=== PATIENT | female | born 1955 | race African-American/Black ===

== ENCOUNTER 2017-09-08 17:55 | Inpatient (IN) | payer MEDICAID, OTHER ==
[2017-09-08 18:43] LABS: #Eosinphils 0.2 thou/uL (0.0-0.7); #Lymphocytes 2.6 thou/uL (1.20-3.40); #Monocytes 0.8 thou/uL (0.11-0.59); #Neutrophils 4.2 thou/uL (1.40-6.50); %Basophils 0.6 % (0.0-1.0); %Eosinophils 2.4 % (0.0-10.0); %Lymphocytes 32.8 % (21.0-51.0); %Monocytes 9.7 % (0.0-10.0); %Neutrophils 54.5 % (42.0-75.0); Hemoglobin 9.6 g/dL (12.0-16.0); Mean Corpuscular HGB CONC 33.1 g/dL (32.0-36.0); Mean Corpuscular Hemoglobin 30.8 pg (27.0-31.0); Mean Corpuscular Volume 93.2 fl (81.0-99.0); Mean Platelet Volume 6.6 fL (7.4-10.4); Platelet Count 262 thou/uL (130-400); RBC Distribution Width 13.4 % (11.5-14.5); Red Blood Cell (RBC) Count 3.11 mill/uL (4.20-5.40); White Blood Cell (WBC) Count 7.8 thou/uL (4.8-10.8)
[2017-09-08 19:05] LABS: ALT (SGPT) 40 U/L (8-55); AST (SGOT) 60 U/L (5-34); Albumin 3.2 g/dL (3.4-4.8); Alkaline Phosphatase 164 U/L (40-150); Anion Gap 18 mmol/L (10-20); BUN (Urea Nitrogen) 45 mg/dL (9.8-20.1); Bilirubin, Total 0.7 mg/dL (0.2-1.2); CK (CPK) 67 U/L (29-168); Calc. Creatinine Clearance 0 mL/min (70-130); Calcium 9.3 mg/dL (7.8-10.44); Carbon Dioxide 31 mmol/L (23-31); Chloride 92 mmol/L (98-107); Estimated GFR-MDRD 9; Globulin 4.3 g/dL (2.4-3.5); Glucose 130 mg/dL (80-115); Potassium 4.2 mmol/L (3.5-5.1); Protein, Total 7.5 g/dL (6.0-8.3); Sodium 137 mmol/L (136-145)
--- NOTE | 2017-09-08 19:21 | RAD ---
CHEST TWO VIEW 09/08/17 HISTORY: Weakness. COMPARISON: Chest radiograph 03/27/17. FINDINGS: Heart size is upper limits of normal. There is some faint opacities in the lingula and left lower lob e, improved from the comparison examination. No pneumothorax. No significant effusion. IMPRESSION: Mild cardiomegaly and chronic changes. No acute intrathoracic abnormality. POS: [facility]
--- NOTE | 2017-09-08 19:23 | RAD ---
LEFT KNEE THREE VIEW 09/08/17 HISTORY: Trauma. COMPARISON: Radiograph from 2015. FINDINGS: No displaced fracture or malalignment. Severe medial compartment degenerative disease. Extensive vasc ular calcifications. No significant joint effusion. Large tricompartmental osteophytes. IMPRESSION: 1. No displaced fracture or malalignment. 2. Severe medial compartment osteoarthrosis. POS: [facility]
--- NOTE | 2017-09-08 19:24 | RAD ---
RIGHT KNEE THREE VIEW 09/08/17 HISTORY: Trauma. COMPARISON: None. FINDINGS: No displaced fracture or malalignment. Moderate medial compartment narrowing. Chondrocalcinosis is present. IMPRESSION: Extensive vascular calcifications. IMPRESSION: 1. No displaced fracture or malalignment. 2. Moderate tricompartmental osteoarthritic disease, worse in the medial compartment. POS: [facility]
--- NOTE | 2017-09-08 20:15 | CT ---
CT BRAIN WITHOUT CONTRAST 09/08/17 HISTORY: Right sided weakness. COMPARISON: CT brain 05/07/14. FINDINGS: There are punctate calcifications in the carlos, similar. Old left lacunar infarcts. Mild microvascular ischemic changes. Mild ex vacuo dilatation of the body left lateral ventricle. The paranasal sinuses and mastoids are clear. IMPRESSION: No acute intracranial abnormality. POS: [facility]
--- NOTE | 2017-09-08 20:19 | CT ---
CT CERVICAL SPINE WITHOUT CONTRAST 09/08/17 HISTORY: Fall. COMPARISON: None. FINDINGS: The occipital condyles are intact. There are erosions of the odontoid process without fracture. Vertebral bodies are without fracture. Posterior elements are without fracture. Dense vascular calcifications of the carotid bifurcations bilaterally, although mildly worse on the r ight. The visualized ribs are unremarkable. The lung apices are clear. Paraspinal soft tissues are unremarkable. IMPRESSION: 1. No acute fracture or malalignment of the cervical spine. 2. Posterior longitudinal ligament calcifications at C5-6 causing mild narrowing of the spinal c anal to approximately 6 mm. 3. Posterior disc extrusion at C3-4 narrowing the spinal canal to approximately 3-4 mm. MRI may be helpful on nonemergent basis to evaluate for underlying myelomalacia. POS: [facility]
[2017-09-08 21:01] LABS: CKMB 0.6 ng/mL (0-6.6); Troponin I 0.034 ng/mL (< 0.028)
[2017-09-08] MEDS ORDERED: Morphine 4 MG/ML VIAL ONE (21:21)
[2017-09-08 22:07] LABS: Troponin I 0.036 ng/mL (< 0.028)
[2017-09-08] MEDS ORDERED: Labetalol HCl 100 MG/20 ML VIAL SLOW IVP PRN (23:24)
[2017-09-08] MEDS ORDERED: hydrALAZINE 20 MG/ML VIAL SLOW IVP PRN (23:24)
[2017-09-08] MEDS ORDERED: Guaifenesin DM 100-10/5 ML UDCUP PO PRN (23:24)
[2017-09-09 00:39] VITALS: BMI 33.3
[2017-09-09 01:13] LABS: Troponin I 0.051 ng/mL (< 0.028)
--- NOTE | 2017-09-09 01:27 | HP ---
REASON FOR ADMISSION: Right upper extremity tingling and numbness. HISTORY OF PRESENT ILLNESS: The patient was sent from [facility] for complaints of left upper extremity numbness and tingling, but patient complains of right upper extremity numbness here. The patient states she is a right-handed person. She also mentions that she has had old stroke which has affected her right side and made her sensation go bad on the right side. This happened 2 years back. She has been wheelchair bound at the shelter. She normally sits in her wheelchair and rides around, but this morning she was in bed and she was having paraesthesias in the right upper extremity. Patient also keeps repeating her answers at least 2-3 times. She cannot move both lower extremities as it hurts her. No complaints of chest pain, palpitations, PND or orthopnea. She had her dialysis yesterday. PAST MEDICAL AND SURGICAL HISTORY: History of end-stage renal disease on hemodialysis on Sunday, Wednesdays, and Fridays; hypertension, dyslipidemia, prior history of cerebrovascular accident 2 years ago, bilateral knee surgery, cholecystectomy, hysterectomy, spinal surgery, left upper extremity dialysis access procedures, glaucoma. CURRENT MEDICATIONS: The patient is on alprazolam 0.5 mg p.o. twice daily, Norvasc 10 mg p.o. daily, aspirin 81 mg p.o. daily, Coreg 6.25 mg twice daily, latanoprost and timolol eyedrops, lisinopril 7.5 mg daily, PhosLo 667 mg after meals, gabapentin 100 mg 4 times daily, omeprazole 20 mg daily. ALLERGIES: LYRICA, PENICILLIN, PHENERGAN and SULFA. PERSONAL HISTORY: Does not abuse alcohol or drugs. No history of smoking. FAMILY HISTORY: Father with COPD and cancer. Mother has heart disease. REVIEW OF SYSTEMS: The following complete review of systems was negative, unless otherwise mentioned in the HPI or below: Constitutional: Weight loss or gain, ability to conduct usual activities. Skin: Rash, itching. Eyes: Double vision, pain. ENT/Mouth: Nose bleeding, neck stiffness, pain, tenderness. Cardiovascular: Palpitations, dyspnea on exertion, orthopnea. Respiratory: Shortness of breath, wheezing, cough, hemoptysis, fever or night sweats. Gastrointestinal: Poor appetite, abdominal pain, heartburn, nausea, vomiting, constipation, or diarrhea. Genitourinary: Urgency, frequency, dysuria, nocturia. Musculoskeletal: Pain, swelling. Neurologic/Psychiatric: Anxiety, depression. Allergy/Immunologic: Skin rash, bleeding tendency. PHYSICAL EXAMINATION: GENERAL: The patient is a 62-year-old female who is currently not in any acute distress. VITAL SIGNS: Blood pressure 178/66, pulse 74 per minute, respiratory rate 18 per minute, temperature 99 degrees Fahrenheit, saturating 98% on room air. NECK: Supple, no elevated JVD. HEENT: Extraocular muscles intact. Pupils reacting to light. Oral cavity mucous membranes are moist. No exudates or congestion. CARDIOVASCULAR: S1, S2 heard. Regular rhythm. RESPIRATORY: Air entry 1+ bilaterally. No rales or rhonchi. ABDOMEN: Soft, bowel sounds heard. No tenderness, rigidity or guarding. EXTREMITIES: There is 1+ peripheral edema, no calf tenderness. VASCULAR SYSTEM: Peripheral pulses 1+ bilateral. No ischemic ulcerations or gangrene. CENTRAL NERVOUS SYSTEM: The patient has difficulty moving both her lower extremities which causes pain in her back. She has been that way for many years per patient. Left upper extremity strength is 5/5, right upper extremity is 3/5, reflexes are 1+ bilateral. Babinski is equivocal. Gait cannot be tested. PSYCHIATRIC: No obvious hallucinations or delusions. LABORATORY AND X-RAY FINDINGS: EKG done shows normal sinus rhythm at 71 beats per minute. White count of 7, H&H 9 and 29, platelet count 262 with 54% neutrophils, MCV is 93. Serum bicarbonate is 31, BUN 45, creatinine 5.8, glucose 130, AST 60, ALT 40, alkaline phosphatase 164, albumin is 3.2, troponin I is indeterminate at 0.03, CK-MB 0.6. Influenza A and B antigens are negative. She has had multiple imaging studies done including CT spine, CAT scan which shows no acute fracture or malalignment of C-spine. There is a posterior longitudinal ligament calcifications at C5-6 causing mild narrowing of the spinal canal to approximately 6 mm. There is posterior disk protrusion at C3-C4 narrowing the spinal canal to approximately 3-4 mm. Left knee x-ray done shows no displaced fracture or malalignment, severe medial compartment osteoarthrosis is seen. CT brain done shows no acute intracranial abnormality. There is punctate calcification in the carlos, old left lacunar infarcts are seen. Mild ex vacuo dilatation of the body of left lateral ventricle. Right knee x-ray shows no displaced fracture or malalignment. There is moderate tricompartmental osteoarthritic disease, worse in the medial compartment. Chest x-ray done shows no acute infiltrate. There is mild cardiomegaly. CLINICAL IMPRESSION AND PLAN: The patient will be under observation on the stroke unit for possible TIA. She has had cerebrovascular accident on the same side. She has had prior cerebrovascular accident of right side 2 years ago per patient. She has had paraesthesias from then on, it just seems to be worse in the right upper extremity now. Patient chronically does not move both lower extremities. We will obtain MRI brain for better delineation of the brain structures in view of her prior CVA as well. We will continue her home medication including Norvasc, aspirin, Lipitor, Coreg, Neurontin, latanoprost, atenolol, and Xanax as before. Neurology consultation with Dr. Roxann Almonte who is director of recruitment and admissions for Neurology will be obtained as well. ELANA
[2017-09-09] MEDS: Acetaminophen 325 MG TAB PO PRN (02:01)
[2017-09-09 05:08] LABS: #Basophils 0.1 thou/uL (0.0-0.2); #Eosinphils 0.1 thou/uL (0.0-0.7); #Lymphocytes 2.4 thou/uL (1.20-3.40); #Monocytes 0.6 thou/uL (0.11-0.59); #Neutrophils 3.5 thou/uL (1.40-6.50); %Basophils 0.8 % (0.0-1.0); %Eosinophils 2.1 % (0.0-10.0); %Lymphocytes 35.8 % (21.0-51.0); %Monocytes 9.6 % (0.0-10.0); %Neutrophils 51.8 % (42.0-75.0); Hemoglobin 9.1 g/dL (12.0-16.0); Mean Corpuscular HGB CONC 33.4 g/dL (32.0-36.0); Mean Platelet Volume 6.8 fL (7.4-10.4); Platelet Count 245 thou/uL (130-400); RBC Distribution Width 13.1 % (11.5-14.5); Red Blood Cell (RBC) Count 2.94 mill/uL (4.20-5.40); White Blood Cell (WBC) Count 6.7 thou/uL (4.8-10.8)
[2017-09-09 05:30] LABS: Anion Gap 17 mmol/L (10-20); BUN (Urea Nitrogen) 50 mg/dL (9.8-20.1); Calc. Creatinine Clearance 12 mL/min (70-130); Calcium 8.9 mg/dL (7.8-10.44); Carbon Dioxide 32 mmol/L (23-31); Cardiac Risk 3.4 (Less than 4.5); Chloride 91 mmol/L (98-107); Cholesterol 134 mg/dl (< 200 Desired); Estimated GFR-MDRD 8; Glucose 85 mg/dL (80-115); HDL Cholesterol 40 mg/dL (>60 Neg Risk); LDL Cholesterol, Calculated 44 mg/dL; Potassium 4.6 mmol/L (3.5-5.1); Sodium 135 mmol/L (136-145); Triglycerides 252 mg/dL (Less than 150)
[2017-09-09] MEDS ORDERED: Aspirin 81 mg Enteric Coated Tablet PO SCH ×2 (09:00→21:00)
[2017-09-09] MEDS ORDERED: Carvedilol 6.25 MG TAB PO SCH (09:00)
[2017-09-09] MEDS: Docusate 100 MG CAP PO SCH ×2 (09:54→19:50)
[2017-09-09] MEDS: ALPRAZolam 0.5 MG TAB PO SCH ×2 (09:56→19:50)
[2017-09-09] MEDS: Amlodipine 10 MG TAB PO SCH (09:56)
[2017-09-09] MEDS: Famotidine 20 MG TAB PO SCH (09:56)
[2017-09-09] MEDS: Heparin 5,000 UNITS/ML VIAL SC SCH ×3 (09:57→19:51)
[2017-09-09] MEDS ORDERED: Acetaminophen/Codeine 30-300mg Tablet PO PRN (10:09)
[2017-09-09] MEDS: Timolol 0.5% Ophth Soln 5 ml Bottle EA EYE SCH (11:59)
[2017-09-09] MEDS: Acetaminophen/Codeine 30-300mg Tablet PO PRN ×2 (12:00→18:05)
--- NOTE | 2017-09-09 14:14 | PDOC.PN ---
- Subjective Encounter Start Date: 09/09/17 Encounter Start Time: 14:13 Subjective: feels better. on and off right hand numbness -: hasn't walked in months as she will refuse PT often - Objective Resuscitation Status: Resuscitation Status FULL:Full Resuscitation MAR Reviewed: Yes Vital Signs & Weight: Vital Signs (12 hours) Temp Pulse Pulse Pulse Resp BP BP 09/09/17 11:59 61 179/78 H 09/09/17 10:52 98.4 F 61 16 09/09/17 09:56 61 162/69 H 09/09/17 08:57 65 62 152/70 H 09/09/17 07:20 98.6 F 61 20 09/09/17 07:02 98.6 F 61 20 09/09/17 04:30 98.4 F 60 16 166/72 H BP BP Pulse Ox 09/09/17 11:59 09/09/17 10:52 179/78 H 99 09/09/17 09:56 09/09/17 08:57 173/73 H 09/09/17 07:20 09/09/17 07:02 162/69 H 94 L 09/09/17 04:30 98 Weight Weight 182 lb 6 oz I&O: 09/08/17 09/09/17 09/10/17 06:59 06:59 06:59 Intake Total 240 300 Balance 240 300 Result Diagrams: 09/09/17 04:09 09/09/17 04:09 Additional Labs: Accuchecks 09/09/17 09/09/17 11:00 07:45 POC Glucose 160 H 106 Phys Exam - Physical Examination Constitutional: NAD HEENT: PERRLA, moist MMs, sclera anicteric, oral pharynx no lesions Neck: no nodes, no JVD, supple, full ROM Respiratory: no wheezing, no rales, no rhonchi, clear to auscultation bilateral Cardiovascular: RRR, no significant murmur Gastrointestinal: soft, non-tender, no distention, positive bowel sounds Musculoskeletal: no edema, pulses present Neurological: non-focal, normal sensation, moves all 4 limbs Psychiatric: normal affect, A&O x 3 Skin: no rash Dx/Plan (1) TIA (transient ischemic attack) Status: Acute (2) ESRD (end stage renal disease) on dialysis Code(s): N18.6 - END STAGE RENAL DISEASE; Z99.2 - DEPENDENCE ON RENAL DIALYSIS Status: Chronic (3) History of CVA (cerebrovascular accident) Code(s): Z86.73 - PRSNL HX OF TIA (TIA), AND CEREB INFRC W/O RESID DEFICITS Status: Chronic (4) Hypertension Code(s): I10 - ESSENTIAL (PRIMARY) HYPERTENSION Status: Chronic (5) Obesity (BMI 30.0-34.9) Code(s): E66.9 - OBESITY, UNSPECIFIED Status: Chronic (6) Anemia of renal disease Code(s): D63.1 - ANEMIA IN CHRONIC KIDNEY DISEASE Status: Chronic (7) Diabetes type 2, controlled Code(s): E11.9 - TYPE 2 DIABETES MELLITUS WITHOUT COMPLICATIONS Status: Chronic (8) Diabetic nephropathy associated with type 2 diabetes mellitus Code(s): E11.21 - TYPE 2 DIABETES MELLITUS WITH DIABETIC NEPHROPATHY Status: Chronic - Plan PT/OT, respiratory therapy, incentive spirometry, out of bed/ambulate, DVT proph w/SCDs MRI & neuro eval pending.doubtful new stroke -: will do inpt rehab.pt does not walk because she does'nt participate much -: cont home meds as below. -: consult OT,PT * . Review of Systems - Review of Systems Constitutional: negative: fever, chills, sweats, weakness, malaise, other Respiratory: negative: Cough, Dry, Shortness of Breath, Hemoptysis, SOB with Excertion, Pleuritic Pain, Sputum, Wheezing Cardiovascular: negative: chest pain, palpitations, orthopnea, paroxysmal nocturnal dyspnea, edema, light headedness, other Gastrointestinal: negative: Nausea, Vomiting, Abdominal Pain, Diarrhea, Constipation, Melena, Hematochezia, Other Genitourinary: negative: Dysuria, Frequency, Incontinence, Hematuria, Retention , Other Musculoskeletal: negative: Neck Pain, Shoulder Pain, Arm Pain, Back Pain, Hand Pain, Leg Pain, Foot Pain, Other Neurological: Weakness, Numbness - Medications/Allergies Allergies/Adverse Reactions: Allergies Allergy/AdvReac Type Severity Reaction Status Date / Time Penicillins Allergy Intermediate THROAT Verified 03/28/17 02:45 SWELLING pregabalin [From Lyrica] Allergy Intermediate DILLIRIUM Verified 03/28/17 02:45 Sulfa (Sulfonamide Allergy Intermediate Nausea Verified 03/28/17 02:45 Antibiotics) promethazine [From Phenergan] Allergy Verified 03/28/17 02:45 Medications: Current Medications Acetaminophen (Tylenol) 650 mg PO Q4H PRN PRN Reason: Headache/Fever or Pain Last Admin: 09/09/17 02:01 Dose: 650 mg Acetaminophen/Codeine Phosphate (Tylenol #3) 1 tab PO Q6H PRN PRN Reason: Pain 4-6 Acetaminophen/Codeine Phosphate (Tylenol #3) 2 tab PO Q6H PRN PRN Reason: Pain 7-10 Last Admin: 09/09/17 12:00 Dose: 2 tab Alprazolam (Xanax) 0.5 mg PO BID [facility] Last Admin: 09/09/17 09:56 Dose: 0.5 mg Amlodipine Besylate (Norvasc) 10 mg PO DAILY [facility] Last Admin: 09/09/17 09:56 Dose: 10 mg Aspirin (Ecotrin) 81 mg PO 2100 [facility] Atorvastatin Calcium (Lipitor) 20 mg PO HS [facility] Carvedilol (Coreg) 6.25 mg PO DAILY [facility] Last Admin: 09/09/17 09:56 Dose: 6.25 mg Docusate Sodium (Colace) 100 mg PO BID [facility] Last Admin: 09/09/17 09:54 Dose: Not Given Famotidine (Pepcid) 20 mg PO DAILY [facility] Last Admin: 09/09/17 09:56 Dose: 20 mg Gabapentin (Neurontin) 100 mg PO HS [facility] Guaifenesin/Dextromethorphan (Robitussin Dm) 15 ml PO Q4H PRN PRN Reason: Cough Heparin Sodium (Porcine) (Heparin) 5,000 units SC TID [facility] Last Admin: 09/09/17 09:57 Dose: 5,000 units Hydralazine HCl (Apresoline) 10 mg SLOW IVP Q4H PRN PRN Reason: BP > 220/110 Labetalol HCl (Normodyne) 20 mg SLOW IVP Q1H PRN PRN Reason: BP > 220/110 Latanoprost (Xalatan 0.005% Ophth Soln) 1 drop EA EYE HS [facility] Timolol Maleate (Timoptic 0.5% Ophth Soln) 1 drop EA EYE DAILY [facility] Last Admin: 09/09/17 11:59 Dose: 1 drp
--- NOTE | 2017-09-09 16:40 | MRI ---
BRAIN MRI NONCONTRAST: Clinical history: Right sided weakness. TIA. FINDINGS: Parenchymal atrophy with mild compensatory dilatation of the ventricular system. No acute territory i nfarction or midline shift. Imaged skull base flow voids are grossly patent. Remote lacunar infarctio n of the left basal ganglia is present. No intracranial hemorrhagic susceptibility. There is minimal chronic microvascular ischemic disease of the cerebral white matter. IMPRESSION: No acute intracranial abnormalities. POS: [facility]
[2017-09-09] MEDS: Atorvastatin Calcium 20 MG TAB PO SCH (19:50)
[2017-09-09] MEDS: Latanoprost 0.005% Ophth Soln 2.5 ml Bottle EA EYE SCH (19:51)
[2017-09-09] MEDS ORDERED: Gabapentin 100 MG CAP PO SCH (21:00)
--- NOTE | 2017-09-09 22:14 | CON ---
DATE OF CONSULTATION: 09/09/2017 REFERRING PROVIDER: Jerry Sumner M.D. REASON FOR CONSULTATION: Right-sided weakness. HISTORY OF PRESENT ILLNESS: Ms. Howard is a pleasant 62-year-old -[place] female who has be en concerned for evaluation of right-sided weakness. History is obtained from daughter who was prese nt at bedside. Daughter reports that the patient has a history of stroke in 2013, which had resulted in right arm and right leg weakness. She had been able to walk with support of walker and dragging her right leg since that time. She reports that she was doing well up until 11/2016, when she was ad mitted to the [facility] with complaint of fluid overload. She was found to have kidney david lure and had started on dialysis. Since that time, she has not been able to walk even with the suppo rt of a walker. She states that she has been having increasing episodes of pain in her right lower e xtremity as well as right upper extremity and increasing weakness in that side, more so in the leg th an the arm. She states that over the past 2 to 3 weeks, her pain has been increasing, which prompted her fdc nurse practitioner to increase the dose of gabapentin without much effect. Her butch n was getting more intolerable, which prompted her to present to the [facility]. The patient reports that her pain is primarily in the right upper and right lower extremity. She also co mplains of lower back pain. She has had lumbar spine surgery done in the past; however, her lower ba ck pain has been increasing in severity over the past one year. On occasion, this pain does go down to the right lower extremity. She states that her pain is so intense that she is not able to put any weight in her legs and not able to walk even with support. She had been able to transfer from bed t o wheelchair without assistance; however, about a month ago, she fell while trying to get up out of t he wheelchair and since then she has been reluctant to try to stand up and transfer from bed to wheel chair. PAST MEDICAL HISTORY: Significant for hypertension, diabetes, end-stage renal disease on dialysis, h istory of stroke, and lumbar spondylosis. PAST SURGICAL HISTORY: Significant for bilateral knee surgery, cholecystectomy, hysterectomy, lumbar spine surgery, left upper extremity dialysis catheter placement. CURRENT MEDICATIONS: Please review MAR. ALLERGIES: Include LYRICA, PENICILLIN, PHENERGAN, and SULFA. SOCIAL HISTORY: She denies smoking, alcohol use, or illicit drug use. FAMILY HISTORY: Significant for father with COPD and cancer. Mother with heart disease. REVIEW OF SYSTEMS: As mentioned in the HPI, otherwise negative. PHYSICAL EXAMINATION: VITAL SIGNS: Blood pressure 168/73, pulse of 57, temperature of 98.9, respirations of 16, O2 sats of 93% on room air. GENERAL: Well-developed, well-nourished, -[place] female, in no apparent distress. RESPIRATORY: Clear to auscultation bilaterally. CARDIOVASCULAR: Regular rate and rhythm. NEUROLOGIC: Mental status: The patient is awake, alert, oriented x3. Speech and language: Fluent speech. Cranial nerves: Pupils are 3 mm and reactive. Visual carpenter are full to finger count. Ext ernal muscles are intact. No nystagmus is noted. Face is symmetric. Tongue and uvula are midline. Motor exam showed slightly increased tone in the right upper and right lower extremity. She has 4/5 strength in the right upper extremity. Strength in the left upper extremity is 5/5, strength in the right and left lower extremity is 5/5. Sensory: Diminished sensation in both upper and lower extre mities in distal to proximal gradient. Deep tendon reflexes: 1+ reflex in both upper extremities an d absent in both lower extremities. Babinski: Plantar responses flexion bilaterally. Coordination intact to [id number] tapping bilaterally. LABORATORY DATA: Reviewed, which included CBC, CMP, troponin, CK-MB, CPK and lipid profile, which is significant for hemoglobin 9.1, hematocrit of 27.4. Sodium 135, BUN of 50, creatinine 6.35, glucose of 160. Troponin of 0.051, total cholesterol of 134, LDL of 44, HDL of 40, and triglycerides of 252 , otherwise unremarkable. IMAGING STUDIES: MRI brain without contrast was reviewed, official report is pending. It shows no a cute intracranial abnormality. There is no sign of an acute ischemic infarct. IMPRESSION: 1. Right upper extremity and lower extremity paresthesia. 2. Hypertension. 3. Diabetes. 4. End-stage renal disease on dialysis. Ms. Howard is a pleasant 62-year-old -[place] female with multiple medical problems, present ed with the worsening right-sided pain and weakness. I have reviewed her MRI brain, which showed no acute intracranial abnormality. In my opinion, her symptoms are likely multifactorial. 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 She also may have underlying cervical and lumbar spinal degenerative disk disease that may be contributing to her symptoms. 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 I have revi ewed her MRI of the lumbar spine done on previous visit in 03/2017, which showed multilevel degenerat darien disk disease without any cauda equina compression. CT cervical spine without contrast was also r eviewed, which showed calcification at C5-C6 causing mild narrowing of the spinal canal. At this kirstin e, I would recommend adjusting her Neurontin to 300 mg b.i.d. If she continues to have the symptoms, she may be added on amitriptyline or Cymbalta. I would recommend having her seen by neurosurgeon as an outpatient. She will benefit from having inpatient rehabilitation. No further neurological work up needed from my standpoint. Thank you for the consultation.
[2017-09-10] MEDS: Acetaminophen 325 MG TAB PO PRN (02:51)
[2017-09-10] MEDS: Docusate 100 MG CAP PO SCH ×2 (09:30→22:31)
[2017-09-10] MEDS: Amlodipine 10 MG TAB PO SCH (09:30)
[2017-09-10] MEDS: Famotidine 20 MG TAB PO SCH (09:30)
[2017-09-10] MEDS: Timolol 0.5% Ophth Soln 5 ml Bottle EA EYE SCH (09:30)
[2017-09-10] MEDS: ALPRAZolam 0.5 MG TAB PO SCH ×2 (09:30→22:30)
[2017-09-10] MEDS: Gabapentin 100 MG CAP PO SCH ×3 (09:34→22:30)
[2017-09-10] MEDS: Lisinopril 5 MG TAB PO SCH (09:34)
[2017-09-10] MEDS: Heparin 5,000 UNITS/ML VIAL SC SCH ×3 (09:35→22:29)
--- NOTE | 2017-09-10 10:03 | RAD ---
CHEST ONE VIEW: History: Fever. Comparison: 03-27-17 FINDINGS: Lungs are clear. No pneumothorax or effusion. Cardiac silhouette and mediastinal contour is within no rmal limits. Mild degenerative changes left glenohumeral joint. IMPRESSION: Mild cardiomegaly. The pulmonary edema previously seen edema has improved. POS: [facility]
[2017-09-10] MEDS: Oseltamivir 75 MG CAP PO SCH (12:04)
[2017-09-10] MEDS: Calcium Acetate 667 MG CAP PO SCH ×2 (12:04→17:32)
[2017-09-10 12:51] LABS: HBSAg Index 0.56 S/CO (0-0.99); Hep B Surf Ag Non-Reactive S/CO (NonReactive)
--- NOTE | 2017-09-10 14:17 | PDOC.PN ---
- Subjective Encounter Start Date: 09/10/17 Encounter Start Time: 14:16 Subjective: c/o leg cramps during HD ,O/W no new complains -: continues to feel weak and tired -: low grade fever this am - Objective Resuscitation Status: Resuscitation Status FULL:Full Resuscitation MAR Reviewed: Yes Vital Signs & Weight: Vital Signs (12 hours) Temp Pulse Pulse Pulse Resp BP BP 09/10/17 10:30 97.7 F 40 L 20 09/10/17 09:34 48 L 09/10/17 08:28 37 L 36 L 148/67 H 09/10/17 08:00 98.8 F 48 L 18 09/10/17 07:05 97.8 F 48 L 16 09/10/17 02:48 100.0 F H 44 L 20 155/69 H BP BP Pulse Ox Pulse Ox 09/10/17 10:30 134/61 92 L 09/10/17 09:34 09/10/17 08:28 120/55 L 92 L 09/10/17 08:00 09/10/17 07:05 131/58 L 94 L 09/10/17 02:48 91 L Weight Weight 182 lb 6 oz I&O: 09/09/17 09/10/17 09/11/17 06:59 06:59 06:59 Intake Total 240 1020 Output Total 0 Balance 240 1020 Result Diagrams: 09/09/17 04:09 09/09/17 04:09 Additional Labs: Accuchecks 09/10/17 09/10/17 09/09/17 10:42 04:34 20:16 POC Glucose 106 135 H 175 H 09/09/17 17:12 POC Glucose 162 H Radiology Reviewed by me: Yes (MRI-no new CVA) EKG Reviewed by me: Yes (NSR) Phys Exam - Physical Examination Constitutional: NAD HEENT: PERRLA, moist MMs, sclera anicteric, oral pharynx no lesions Neck: no nodes, no JVD, supple, full ROM Respiratory: no wheezing, no rales, no rhonchi, clear to auscultation bilateral Cardiovascular: RRR, no significant murmur, no rub, gallop Gastrointestinal: soft, non-tender, no distention, positive bowel sounds Musculoskeletal: no edema, pulses present Neurological: non-focal, normal sensation, moves all 4 limbs Psychiatric: normal affect, A&O x 3 Skin: no rash Dx/Plan (1) Fever Code(s): R50.9 - FEVER, UNSPECIFIED Status: Acute (2) ESRD (end stage renal disease) on dialysis Code(s): N18.6 - END STAGE RENAL DISEASE; Z99.2 - DEPENDENCE ON RENAL DIALYSIS Status: Chronic (3) History of CVA (cerebrovascular accident) Code(s): Z86.73 - PRSNL HX OF TIA (TIA), AND CEREB INFRC W/O RESID DEFICITS Status: Chronic (4) Hypertension Code(s): I10 - ESSENTIAL (PRIMARY) HYPERTENSION Status: Chronic (5) Obesity (BMI 30.0-34.9) Code(s): E66.9 - OBESITY, UNSPECIFIED Status: Chronic (6) Anemia of renal disease Code(s): D63.1 - ANEMIA IN CHRONIC KIDNEY DISEASE Status: Chronic (7) Diabetes type 2, controlled Code(s): E11.9 - TYPE 2 DIABETES MELLITUS WITHOUT COMPLICATIONS Status: Chronic (8) Diabetic nephropathy associated with type 2 diabetes mellitus Code(s): E11.21 - TYPE 2 DIABETES MELLITUS WITH DIABETIC NEPHROPATHY Status: Chronic (9) TIA (transient ischemic attack) Status: Ruled-out (10) Physical deconditioning Code(s): R53.81 - OTHER MALAISE Status: Acute - Plan PT/OT, out of bed/ambulate, DVT proph w/SCDs check blood Cx.restart Tamiflu prophylaxis -pt [facility] -: increase Gabapentin for neuropathy. -: rehab eval pending for Inpt rehab-pt severe deconditioned -: CX checked-no infiltrates -: HD per nephrology.am labs Not stable for DC yet.Need placement and fever work up Review of Systems - Review of Systems Constitutional: fever, weakness, malaise. negative: chills, sweats, other - Medications/Allergies Allergies/Adverse Reactions: Allergies Allergy/AdvReac Type Severity Reaction Status Date / Time Penicillins Allergy Intermediate THROAT Verified 03/28/17 02:45 SWELLING pregabalin [From Lyrica] Allergy Intermediate DILLIRIUM Verified 03/28/17 02:45 Sulfa (Sulfonamide Allergy Intermediate Nausea Verified 03/28/17 02:45 Antibiotics) promethazine [From Phenergan] Allergy Verified 03/28/17 02:45 Medications: Current Medications Acetaminophen (Tylenol) 650 mg PO Q4H PRN PRN Reason: Headache/Fever or Pain Last Admin: 09/10/17 02:51 Dose: 650 mg Acetaminophen/Codeine Phosphate (Tylenol #3) 1 tab PO Q6H PRN PRN Reason: Pain 4-6 Acetaminophen/Codeine Phosphate (Tylenol #3) 2 tab PO Q6H PRN PRN Reason: Pain 7-10 Last Admin: 09/09/17 18:05 Dose: 2 tab Alprazolam (Xanax) 0.5 mg PO BID [facility] Last Admin: 09/10/17 09:30 Dose: 0.5 mg Amlodipine Besylate (Norvasc) 10 mg PO DAILY [facility] Last Admin: 09/10/17 09:30 Dose: 10 mg Aspirin (Ecotrin) 81 mg PO QPM [facility] Atorvastatin Calcium (Lipitor) 20 mg PO HS [facility] Last Admin: 09/09/17 19:50 Dose: 20 mg Calcium Acetate (Phoslo) 667 mg PO TID-[facility] Last Admin: 09/10/17 12:04 Dose: Not Given Docusate Sodium (Colace) 100 mg PO BID [facility] Last Admin: 09/10/17 09:30 Dose: 100 mg Famotidine (Pepcid) 20 mg PO DAILY [facility] Last Admin: 09/10/17 09:30 Dose: 20 mg Gabapentin (Neurontin) 100 mg PO TID [facility] Last Admin: 09/10/17 09:34 Dose: 100 mg Guaifenesin/Dextromethorphan (Robitussin Dm) 15 ml PO Q4H PRN PRN Reason: Cough Heparin Sodium (Porcine) (Heparin) 5,000 units SC TID [facility] Last Admin: 09/10/17 09:35 Dose: Not Given Hydralazine HCl (Apresoline) 10 mg SLOW IVP Q4H PRN PRN Reason: BP > 220/110 Labetalol HCl (Normodyne) 20 mg SLOW IVP Q1H PRN PRN Reason: BP > 220/110 Latanoprost (Xalatan 0.005% Ophth Soln) 1 drop EA EYE [facility] Last Admin: 09/09/17 19:51 Dose: 1 drop Lisinopril (Zestril) 7.5 mg PO DAILY [facility] Last Admin: 09/10/17 09:34 Dose: 7.5 mg Oseltamivir Phosphate (Tamiflu) 75 mg PO DAILY [facility] Last Admin: 09/10/17 12:04 Dose: Not Given Pantoprazole Sodium (Protonix) 40 mg PO DAILY [facility] Timolol Maleate (Timoptic 0.5% Oph Soln) 1 drop EA EYE DAILY [facility] Last Admin: 09/10/17 09:30 Dose: 1 drp
[2017-09-10] MEDS: Latanoprost 0.005% Ophth Soln 2.5 ml Bottle EA EYE SCH (22:29)
[2017-09-10] MEDS: Atorvastatin Calcium 20 MG TAB PO SCH (22:30)
[2017-09-10] MEDS: Aspirin 81 mg Enteric Coated Tablet PO SCH (22:30)
[2017-09-10] MEDS: Acetaminophen/Codeine 30-300mg Tablet PO PRN (22:30)
[2017-09-11 05:47] LABS: Anion Gap 17 mmol/L (10-20); BUN (Urea Nitrogen) 34 mg/dL (9.8-20.1); Calc. Creatinine Clearance 14 mL/min (70-130); Calcium 8.7 mg/dL (7.8-10.44); Carbon Dioxide 26 mmol/L (23-31); Chloride 96 mmol/L (98-107); Estimated GFR-MDRD 10; Glucose 86 mg/dL (80-115); Potassium 5.3 mmol/L (3.5-5.1); Sodium 134 mmol/L (136-145)
[2017-09-11 06:26] LABS: #Eosinphils 0.3 thou/uL (0.0-0.7); #Lymphocytes 2.5 thou/uL (1.20-3.40); #Monocytes 0.6 thou/uL (0.11-0.59); #Neutrophils 2.6 thou/uL (1.40-6.50); %Basophils 0.6 % (0.0-1.0); %Eosinophils 4.8 % (0.0-10.0); %Neutrophils 43.6 % (42.0-75.0); Hemoglobin 10.7 g/dL (12.0-16.0); Mean Corpuscular HGB CONC 34.3 g/dL (32.0-36.0); Mean Corpuscular Hemoglobin 31.5 pg (27.0-31.0); Mean Corpuscular Volume 91.8 fl (81.0-99.0); Mean Platelet Volume 7.2 fL (7.4-10.4); Platelet Count 248 thou/uL (130-400); RBC Distribution Width 13.3 % (11.5-14.5); Red Blood Cell (RBC) Count 3.41 mill/uL (4.20-5.40)
[2017-09-11 06:27] LABS: Band 2 % (5-11); Eosinophils 2 % (0-10); Lymphocytes 35 % (21-51); MDiff Complete? YES; Monocytes 13 % (0-10); Neutrophil 48 % (42-75)
[2017-09-11] MEDS: Calcium Acetate 667 MG CAP PO SCH ×3 (09:30→17:31)
[2017-09-11] MEDS: Heparin 5,000 UNITS/ML VIAL SC SCH ×3 (09:31→20:33)
[2017-09-11] MEDS: Docusate 100 MG CAP PO SCH ×2 (09:32→20:35)
[2017-09-11] MEDS: Amlodipine 10 MG TAB PO SCH (09:34)
[2017-09-11] MEDS: ALPRAZolam 0.5 MG TAB PO SCH ×2 (09:34→20:34)
[2017-09-11] MEDS: Famotidine 20 MG TAB PO SCH (09:34)
[2017-09-11] MEDS: Oseltamivir 75 MG CAP PO SCH (09:35)
[2017-09-11] MEDS: Gabapentin 100 MG CAP PO SCH ×3 (09:35→20:34)
[2017-09-11] MEDS: Timolol 0.5% Ophth Soln 5 ml Bottle EA EYE SCH (09:35)
[2017-09-11] MEDS: Acetaminophen/Codeine 30-300mg Tablet PO PRN (09:36)
[2017-09-11] MEDS: Lisinopril 5 MG TAB PO SCH (09:41)
--- NOTE | 2017-09-11 18:10 | CON ---
DATE OF CONSULTATION: 09/10/2017 REASON FOR CONSULTATION: Bradycardia. HISTORY OF PRESENT ILLNESS: Ms. Howard is a pleasant 62-year-old woman who recently presented with stroke-like symptoms. Neurology was consulted and did not feel this was consistent with stroke. Sena spears had intermittent episodes of bradycardia. She has been on beta vangie therapy as well as ateno lol. She also says she has end-stage renal disease. She has been asymptomatic, but no syncope, pres yncope or other associated symptoms. PAST MEDICAL HISTORY: Diabetes mellitus, end-stage renal disease, previous stroke, hypertension. PAST SURGICAL HISTORY: Knee surgery, cholecystectomy, hysterectomy, and lumbar spinal surgery. ALLERGIES: LYRICA, PENICILLIN, PHENERGAN, and SULFA. SOCIAL HISTORY: No current tobacco or alcohol use. FAMILY HISTORY: Negative for CAD. REVIEW OF SYSTEMS: Ten point review of systems is reviewed and as above negative. PHYSICAL EXAMINATION: GENERAL: Patient is a pleasant male/female who is in no acute distress. The patient appears his/her stated age. VITAL SIGNS: Blood pressure 150/65, pulse 68, temperature 98.9. NEUROLOGIC: The patient is alert and oriented times 3 with no focal neurologic deficits. HEENT: Sclerae without icterus. Mouth has moist mucous membranes with normal pallor. NECK: No JVD. Carotid upstroke brisk. No bruits bilaterally. LUNGS: Clear to auscultation with unlabored respirations. BACK: No scoliosis or kyphosis. CARDIAC: Regular rate and rhythm with normal S1 and S2. No S3 or S4 noted. No significant rubs, mu rmurs, thrills, or gallops noted throughout the precordium. PMI is not displaced. There is no behzad ternal heave. ABDOMEN: Soft, nontender, nondistended. No peritoneal signs present. No hepatosplenomegaly. No abnormal striae. EXTREMITIES: 2+ femoral and 2+ dorsalis pedis pulses. No cyanosis, clubbing, or edema. SKIN: No gross abnormalities. PERTINENT LABORATORY DATA: Hemoglobin 10.7, creatinine 5. IMPRESSION: Bradycardia. RECOMMENDATIONS: Ms. Thomas symptoms may be related to medical therapy. This may also be related to electrolyte imbalance. She does have fairly abnormal tracing. Would recommend EP consultation fo r further assistance. We will stop beta vangie therapy.
[2017-09-11] MEDS: Latanoprost 0.005% Ophth Soln 2.5 ml Bottle EA EYE SCH (20:34)
[2017-09-11] MEDS: Aspirin 81 mg Enteric Coated Tablet PO SCH (20:34)
[2017-09-11] MEDS: Atorvastatin Calcium 20 MG TAB PO SCH (20:34)
--- NOTE | 2017-09-11 21:36 | PDOC.PN ---
- Subjective Encounter Start Date: 09/11/17 Encounter Start Time: 21:20 Subjective: f/u for severe bradycardia likely iatrogenic from Coreg. HR improved off -: Coreg and not deemed a pacemaker candidate per EP service. Overall feels -: better. - Objective Resuscitation Status: Resuscitation Status FULL:Full Resuscitation MAR Reviewed: Yes Vital Signs & Weight: Vital Signs (12 hours) Temp Pulse Resp BP BP Pulse Ox 09/11/17 15:00 98.3 F 56 L 16 152/68 H 97 09/11/17 12:38 98.4 F 60 20 148/69 H 99 09/11/17 09:41 57 L 147/65 H Weight Weight 182 lb 6 oz I&O: 09/10/17 09/11/17 09/12/17 06:59 06:59 06:59 Intake Total 1020 720 600 Output Total 0 1800 Balance 1020 -1080 600 Result Diagrams: 09/11/17 04:52 09/11/17 04:52 Additional Labs: Accuchecks 09/11/17 09/11/17 09/11/17 16:48 11:15 10:47 POC Glucose 111 H 102 107 Microbiology 09/08/17 22:40 Nasal swab Influenza Types A,B Direct EIA - Final 09/10/17 11:30 Venous blood - Right Arm Blood Culture - Preliminary Specimen has been received and culture in progress. No Growth to date. 09/10/17 09:06 Venous blood - Right Hand Blood Culture - Preliminary Specimen has been received and culture in progress. No Growth to date. Laboratory Tests 09/08/17 09/08/17 09/09/17 18:34 18:34 04:09 Hgb 9.6 L Potassium 4.2 4.6 Hep Bs Antigen 09/09/17 09/10/17 04:09 11:30 Hgb 9.1 L Potassium Hep Bs Antigen Non-Reactive Radiology Reviewed by me: Yes (MRI brain - negative) EKG Reviewed by me: Yes (Tele - Sinus in the 60's) Phys Exam - Physical Examination Constitutional: NAD HEENT: PERRLA, oral pharynx no lesions Neck: no JVD, supple Respiratory: no wheezing, clear to auscultation bilateral Cardiovascular: RRR Gastrointestinal: soft, non-tender, no distention, positive bowel sounds Musculoskeletal: no edema, pulses present Neurological: moves all 4 limbs Skin: normal turgor, cap refill <2 seconds Dx/Plan (1) Sinus bradycardia Code(s): R00.1 - BRADYCARDIA, UNSPECIFIED Status: Acute Comment: Suspect iatrogenic with Coreg, improved and resolving with d/c Coreg, continue to monitor for recurrence, EP service states not a candidate for PM placement (2) Physical deconditioning Code(s): R53.81 - OTHER MALAISE Status: Chronic Comment: PT/OT for care home mgmt (3) Anemia of renal disease Code(s): D63.1 - ANEMIA IN CHRONIC KIDNEY DISEASE Status: Chronic Comment: Stable, no evidence of acute blood loss (4) Diabetes type 2, controlled Code(s): E11.9 - TYPE 2 DIABETES MELLITUS WITHOUT COMPLICATIONS Status: Chronic Comment: Stable, continue Levemir and Humalog ISS (5) ESRD (end stage renal disease) on dialysis Code(s): N18.6 - END STAGE RENAL DISEASE; Z99.2 - DEPENDENCE ON RENAL DIALYSIS Status: Chronic Comment: HD per Renal service (6) History of CVA (cerebrovascular accident) Code(s): Z86.73 - PRSNL HX OF TIA (TIA), AND CEREB INFRC W/O RESID DEFICITS Status: Chronic Comment: Associated with R hemiparesis and dysarthria, MRI brain neg for acute process (7) Hypertension Code(s): I10 - ESSENTIAL (PRIMARY) HYPERTENSION Status: Chronic Comment: Increase Lisinopril 10mg daily, d/c Coreg, continue Norvasc 10mg daily - Plan PT/OT, outreach and education social worker, DVT proph w/SCDs Stable currently -: Continue ASA 81mg daily -: Continue Lipitor 20mg daily -: D/C Coreg -: Increase Lisinopril 10mg daily * Appreciate Cardiology and EP assistance * D/C in am 09/12/17
[2017-09-11] MEDS ORDERED: Lisinopril 10 MG TAB PO SCH (21:43)
--- NOTE | 2017-09-12 05:57 | CON ---
DATE OF CONSULTATION: 09/11/2017 REFERRING PHYSICIAN: Dr. Juan Francisco Nicolas. REASON FOR CONSULTATION: Bradycardia. HISTORY OF PRESENT ILLNESS: This is an elderly -[place] patient who is a resident at [facility] who originally presented to emergency room with complaints of left upper extremity numbness and tingling, but currently has complained of right upper extremity numbness. She has had a CVA in the past with residual right-sided weakness and paresthesias which occurred 2 years ago. She is at this point wheelchair bound and has been since November. She has had reportedly significant spinal stenosis and has moderately severe pain when she gets out of bed. She has no history of arrhythmias and has not experienced any palpitations or rapid heart beatings. She has never passed out. She denies any near passing out episodes. She does report that she has dizziness that occurs daily and is unpredictable. She is an end-stage renal patient who dialyzes Sunday, Sunday, Sunday. Other than the dizziness and the arm numbness, the patient has not exhibited any focal symptoms. CT of the head was negative for acute intracranial abnormality that was performed on 09/08/2017. PAST MEDICAL HISTORY: 1. End-stage renal disease requiring dialysis. 2. Severe peripheral vascular disease. 3. Type 2 diabetes. 4. Hypertension 5. Hyperlipidemia. 6. Diastolic dysfunction. 7. Preserved ejection fraction of 55 to 60% on echocardiogram on 06/14/2016 which also showed mild MR and mild TR with grade I diastolic dysfunction and mild left ventricular hypertrophy. 8. Spinal stenosis. 9. CVA 2 years ago with residual right-sided weakness. 10. Glaucoma. 11. Coronary artery disease, status post stent placement. FAMILY HISTORY: Positive for early onset of coronary artery disease. SOCIAL HISTORY: Positive for tobacco use, negative for alcohol or illicit drug use. ALLERGIES: Include PENICILLINS, PREGABALIN, SULFA medications and PROMETHAZINE. CURRENT MEDICATIONS: List includes Tylenol as needed, T3 as needed, Xanax 0.5 mg p.o. b.i.d., amlodipine 10 mg p.o. daily, aspirin 81 mg daily, Lipitor 20 mg p.o. at bedtime, calcium acetate 667 mg p.o. t.i.d. with meals, Colace 100 mg p.o. b.i.d., Pepcid 20 mg p.o. daily, Neurontin 100 mg p.o. t.i.d., Robitussin as needed, heparin 5000 units subcu t.i.d., hydralazine 10 mg slow IV push as needed for hypertension, labetalol as needed for hypertension, latanoprost one drop per eye every evening, Zestril 7.5 mg p.o. daily, Tamiflu 75 mg daily, Protonix 40 mg daily, Timolol maleate 1 drop each eye daily. REVIEW OF SYSTEMS: Constitutional: Patient does report increased weakness over the past 2 to 3 months with falls when trying to transfer from wheelchair to chair. Denies any fevers, chills. Positive for weight fluctuations and malaise. Neurologic: Positive for paresthesias of the upper extremities. Negative for unilateral weakness, speech changes, vision changes, or facial droop. Positive for falls. Cardiovascular: Negative for palpitations and heart raising, chest pain, or pressure. Negative for increased swelling of extremity. Positive for bilateral lower extremity swelling that is constant. GI: Denies nausea, vomiting, diarrhea or blood in her stool. Musculoskeletal: Positive for recent falls with transfers, very limited mobility and weakness that has been progressed over the past 2-3 weeks. PHYSICAL EXAMINATION: VITAL SIGNS: Temperature 98.3 degrees Fahrenheit, pulse is 56, respirations are 16, oxygen saturation is 97% and blood pressure is 152/68. GENERAL: This is an overweight -[place] female in no apparent distress. She is lethargic and a poor historian. HEENT: Pupils are equal, round, and reactive to light and accommodating, sclerae anicteric. NECK: Supple without jugular venous distention. Her trachea is midline. Mucous membranes are moist. PULMONARY: There are crackles noted in bilateral lower lobes upon auscultation. Respirations are even and nonlabored. There is good bilateral excursion without accessory muscle use. CARDIOVASCULAR: Heart rate is regularly regular. EXTREMITIES: Bilateral lower extremities have 2+ pitting edema. GI: Abdomen is large, soft and nontender. There is no splenomegaly that is palpable. Hepatojugular reflux is negative. NEUROLOGIC: The patient is awake, alert, and oriented x3. Her speech is clear and again her affect is somewhat lethargic. The patient has significant weakness in all extremities and sensory deficits in all extremities. MUSCULOSKELETAL: The patient is bed bound and wheelchair dependent for mobility. LABORATORY DATA: Hematology performed on 09/11/2017, WBCs are 6.0, hemoglobin 10.7, hematocrit 31.3, platelet count is 248. Chemistry performed on 09/11/2017 , sodium 134, potassium 5.3, chloride 96, carbon dioxide 26, BUN is 34, creatinine is 5.22. EKGs on pina were reviewed and upon initial presentation to the emergency room, the patient was found to be severely bradycardic and a junctional escape rhythm with rates in the middle of 30s. Later, strips showed the patient has returned to normal sinus rhythm after being dialyzed on 2017 around 11 in the morning. Since that time, the patient has been in sinus bradycardia or sinus rhythm ranging from 55% to 65% beats per minute occasionally with the first-degree AV block. IMPRESSION: 1. Severe bradycardia, likely attributed to his beta vangie use. 2. transient Junctional escape rhythm, currently in normal sinus rhythm. 3. End-stage renal disease. 4. Right upper extremity paresthesias and progressive weakness. RECOMMENDATIONS: Ms. Howard is a pleasant 62-year-old -[place] female with multiple chronic medical problems. She initially presented in a junctional escape rhythm with rates in the low 30s, which corrected when the patient was dialyzed on 09/10/2017. She had previously been taking Coreg and her last dose was in the evening of 09/09/2017. Since that time, the patient has had no recurrence of her bradycardia or junctional rhythm and has been able to maintain in a sinus rhythm or sinus bradycardia with the rates in the 55 to 66 range. The patient does have vague symptoms of dizziness and weakness; however, these do not correlate with her arrhythmias. Her symptoms have persisted since the arrhythmia has resolved. It is likely that the arrhythmia and bradycardia is secondary to beta vangie therapy, Timolol eyedrops may also be contributing factor. At this point, we feel it is appropriate to monitor the patient off of beta vangie therapy. Should she have recurrence of her arrhythmias or becomes symptomatic with syncope or near syncopal episodes that correlate with arrhythmia, a pacemaker could be considered. Should she have increased symptoms or recurrence, could consider 7-day monitor as well. Thank you for allowing us to participate in the care of this patient. Dictated by ANGELIQUE aHwk, for Dion Tan M.D. I was present and examined the pt and agree with the above. Dion Tan MD [facility]
[2017-09-12] MEDS: Acetaminophen/Codeine 30-300mg Tablet PO PRN (12:39)
[2017-09-12] MEDS: Calcium Acetate 667 MG CAP PO SCH (12:40)
[2017-09-12] MEDS: Oseltamivir 75 MG CAP PO SCH (12:40)
[2017-09-12] MEDS: Famotidine 20 MG TAB PO SCH (12:41)
[2017-09-12] MEDS: Docusate 100 MG CAP PO SCH (12:41)
[2017-09-12] MEDS: Amlodipine 10 MG TAB PO SCH (12:41)
[2017-09-12] MEDS: Gabapentin 100 MG CAP PO SCH ×2 (12:42→12:49)
[2017-09-12] MEDS: Heparin 5,000 UNITS/ML VIAL SC SCH ×2 (12:43→12:49)
[2017-09-12] MEDS: ALPRAZolam 0.5 MG TAB PO SCH (12:44)
[2017-09-12 12:47] VITALS: BP 158/67; TEMP 98.3
[2017-09-12] MEDS: Timolol 0.5% Ophth Soln 5 ml Bottle EA EYE SCH (12:54)
--- NOTE | 2017-09-12 19:26 | DIS ---
DATE OF ADMISSION: 09/08/2017 DATE OF DISCHARGE: 09/12/2017. DISCHARGE DIAGNOSES: 1. Sinus bradycardia, iatrogenic secondary to Coreg, improved. 2. Status post mechanical fall. 3. History of cerebrovascular accident with residual right-sided weakness. 4. Hypertension, labile. 5. End-stage renal disease with current hemodialysis. 6. Chronic troponin I elevation without evidence of acute coronary syndrome. 7. Hyperlipidemia. 8. Chronic normocytic anemia secondary to chronic kidney disease. 9. Diabetes mellitus type 2, stable. CONSULTATIONS: Dr. Bedolla with Nephrology service. Dr. Castillo with Cardiology service. Dr. Tan with Electrophysiology Service. PERTINENT LAB AND X-RAY FINDINGS: Creatinine ranged between 5.22-6.35. Estimated GFR ranged between 8-10. Calcium ranged between 8.9-9.3. Troponin I ranged between 0.034-0.051, total cholesterol 134 , triglycerides 252, HDL 40, LDL 44. CBC showed hemoglobin ranged between 9.1-10.7. Blood cultures x2 dated 09/10/2017 showed no growth to date. Influenza A and B antigen dated 09/08/2017 negative. Portable chest x-ray dated 09/08/2017 showed mild cardiomegaly without acute infiltrate. CT of the b rain without contrast dated 09/08/2017 showed no acute intracranial process. MRI of the brain dated 09/09/2017 showed no acute process. Three views of the bilateral knees showed osteoarthrosis without acute process. CT of the cervical spine dated 09/08/2017 showed no acute fracture or subluxation. Mild posterior disk extrusion at C3-C4. HOSPITAL COURSE: Patient was initially placed on observation status after presenting with questionab le right upper extremity paresthesias and mechanical fall. The patient underwent extensive evaluatio n including multiple imaging modalities showing no acute process. The patient was initially worked u p for potential TIA/CVA in the context of a prior CVA with residual right-sided weakness and wheelcha ir assistance. The patient underwent MRI imaging of the brain showing no evidence of an acute infarc t and Neurology consultation was obtained with recommendations for general medical management. The p atient was noted on telemetry monitoring with sinus bradycardia with heart rates reaching into the 40 s. The patient was discontinued on Coreg with overall heart rate trend improving into the 70s. The patient was evaluated by the Cardiology service after questionable symptomatic bradycardia and pauses noted on telemetry monitoring. Recommendation for EP evaluation occurred with recommendation for pa cemaker placement and discontinuation of Coreg as the likely culprit. Overall, the patient did remai n clinically stable for the remainder of the hospital course with telemetry monitoring showing overal l improvement in heart rate trend without the influence of Coreg. The patient is stable and ready fo r discharge on 09/12/2017. DISCHARGE MEDICATIONS: 1. Xanax 0.5 mg p.o. b.i.d. 2. Norvasc 10 mg 1 tab p.o. daily. 3. Enteric coated aspirin 81 mg 1 tab p.o. daily. 4. PhosLo 667 mg p.o. t.i.d. 5. Gabapentin 400 mg p.o. b.i.d. 6. Levemir 5 units subcutaneously daily. 7. Humalog insulin sliding scale t.i.d. with meals. 8. Xalatan 0.005% 1 drop to each eye at bedtime. 9. Lisinopril 10 mg p.o. daily. 10. Omeprazole 20 mg p.o. daily. 11. Tamiflu 75 mg p.o. daily. 12. Timolol maleate 0.5% ophthalmic solution 1 drop to each eye daily. 13. Tylenol #3 of 300/30 mg 1-2 tabs p.o. q.6 hours p.r.n. pain. FOLLOWUP: The patient may follow up with her primary care provider, Dr. Farideh Joseph within 7 days of discharge. The patient may also follow with Dr. Bedolla with Nephrology Service with hemodialysis Mo , Sunday, and Sunday. CONDITION ON DISCHARGE: Fair. ACTIVITY: Ad nataliya. Wheelchair and standby/contact guard assist for ambulation with fall risk precaut ions. DIET: Heart healthy and ADA. CODE STATUS: FULL. DISPOSITION: Discharged to [facility] 09/12/2017.
--- NOTE | 2017-09-29 22:41 | EKG ---
Test Reason : WEAKNESS Blood Pressure : / mmHG Vent. Rate : 071 BPM Atrial Rate : 071 BPM P-R Int : 190 ms QRS Dur : 086 ms QT Int : 420 ms P-R-T Axes : 011 -29 007 degrees QTc Int : 456 ms Normal sinus rhythm Possible Left atrial enlargement Borderline ECG Confirmed by BEN ANDUJAR ([id number]), newspaper managing editor CHARLEY ZACARIAS ([id number]) on 09/29/2017 10:40:33 PM Referred By: Confirmed By:BEN ANDUJAR
--- NOTE | 2017-10-05 16:27 | EKG ---
Test Reason : STAT Blood Pressure : / mmHG Vent. Rate : 033 BPM Atrial Rate : 050 BPM P-R Int : 000 ms QRS Dur : 078 ms QT Int : 492 ms P-R-T Axes : 000 -54 018 degrees QTc Int : 364 ms Junctional escape rhythm with PVC's Left axis deviation Abnormal ECG Confirmed by DR. Vesta WILSON ([id number]) on 10/05/2017 4:27:05 PM Referred By: ANNIE MEIER Confirmed By:DR. Vesta WILSON
== END 2017-09-12 14:41 | DRG 308 ==
LOC: ERS 17:55 → OBSVTOIN 21:11 → ERHOLD 21:11 → 2SW 09-09 00:09
PROVIDERS: ADMIT Internal Medicine Infectious Disease; ATTEND Internal Medicine Infectious Disease
PROC: B030ZZZ Magnetic Resonance Imaging (MRI) of Brain (ICD-10-PCS; principal; 2017-09-09)
PROC: 5A1D70Z Performance of Urinary Filtration, Intermittent, Less than 6 Hours Per Day (ICD-10-PCS; 2017-09-10)
DX: R00.1 Bradycardia, unspecified (principal); N18.6 End stage renal disease; E11.21 Type 2 diabetes mellitus with diabetic nephropathy; I12.0 Hypertensive chronic kidney disease with stage 5 chronic kidney disease or end stage renal disease; I69.351 Hemiplegia and hemiparesis following cerebral infarction affecting right dominant side; E78.5 Hyperlipidemia, unspecified; Z99.2 Dependence on renal dialysis; I25.10 Atherosclerotic heart disease of native coronary artery without angina pectoris; H40.9 Unspecified glaucoma; M47.896 Other spondylosis, lumbar region; M51.36 Other intervertebral disc degeneration, lumbar region; D63.1 Anemia in chronic kidney disease; M50.30 Other cervical disc degeneration, unspecified cervical region; R74.8 Abnormal levels of other serum enzymes; Z99.3 Dependence on wheelchair; Z95.5 Presence of coronary angioplasty implant and graft; Z88.0 Allergy status to penicillin; Z88.2 Allergy status to sulfonamides; Z88.8 Allergy status to other drugs, medicaments and biological substances; Z90.49 Acquired absence of other specified parts of digestive tract; Z83.6 Family history of other diseases of the respiratory system; Z82.49 Family history of ischemic heart disease and other diseases of the circulatory system; Z80.9 Family history of malignant neoplasm, unspecified; T44.7X5A Adverse effect of beta-adrenoreceptor antagonists, initial encounter
CPT/HCPCS: 36415; 36416; 70450; 70551; 71045; 71046; 72125; 80048; 80053; 80061; 82550; 82553; 84484; 85025; 87040; 87340; 87804; 90935; 93005; 93010; 94760; 96374; G0257; G8978-GP-CM; G8979-GP-CJ; G8987-GO-CL; G8988-GO-CJ; G8996-GN-CI; G8997-GN-CI; J1644; J2270

== ENCOUNTER 2017-12-16 17:49 | Inpatient (IN) | payer OTHER ==
[~2017-12-16 17:49] MED LIST: Heparin 1,000 UNITS/ML VIAL ONE
[2017-12-16 18:33] LABS: #Basophils 0.1 thou/uL (0.0-0.2); #Eosinphils 0.1 thou/uL (0.0-0.7); #Lymphocytes 2.4 thou/uL (1.20-3.40); #Monocytes 0.5 thou/uL (0.11-0.59); #Neutrophils 2.7 thou/uL (1.40-6.50); %Basophils 0.9 % (0.0-1.0); %Eosinophils 1.5 % (0.0-10.0); %Lymphocytes 41.2 % (21.0-51.0); %Monocytes 9.1 % (0.0-10.0); %Neutrophils 47.3 % (42.0-75.0); Hemoglobin 10.9 g/dL (12.0-16.0); Mean Corpuscular HGB CONC 33.6 g/dL (32.0-36.0); Mean Corpuscular Hemoglobin 31.5 pg (27.0-31.0); Mean Corpuscular Volume 93.6 fl (81.0-99.0); Mean Platelet Volume 7.7 fL (7.4-10.4); Platelet Count 184 thou/uL (130-400); Red Blood Cell (RBC) Count 3.48 mill/uL (4.20-5.40); White Blood Cell (WBC) Count 5.8 thou/uL (4.8-10.8)
[2017-12-16] MEDS ORDERED: cloNIDine 0.1 MG TAB ONE (18:33)
[2017-12-16 18:56] LABS: ALT (SGPT) 90 U/L (8-55); AST (SGOT) 131 U/L (5-34); Albumin 3.7 g/dL (3.4-4.8); Alkaline Phosphatase 189 U/L (40-150); Anion Gap 22 mmol/L (10-20); BUN (Urea Nitrogen) 72 mg/dL (9.8-20.1); Bilirubin, Total 0.7 mg/dL (0.2-1.2); CK (CPK) 53 U/L (29-168); Calc. Creatinine Clearance 0 mL/min (70-130); Calcium 9.1 mg/dL (7.8-10.44); Carbon Dioxide 25 mmol/L (23-31); Chloride 94 mmol/L (98-107); Estimated GFR-MDRD 7; Globulin 4.5 g/dL (2.4-3.5); Glucose 189 mg/dL (80-115); Potassium 5.4 mmol/L (3.5-5.1); Protein, Total 8.2 g/dL (6.0-8.3); Sodium 136 mmol/L (136-145)
[2017-12-16 19:36] LABS: CKMB 1.4 ng/mL (0-6.6); Troponin I 0.076 ng/mL (< 0.028)
--- NOTE | 2017-12-16 21:05 | RAD ---
SINGLE VIEW OF THE CHEST: Comparison: 09-10-17 Clinical history: Chest pain and edema. FINDINGS: Single view of the chest shows an enlarged cardiomediastinal silhouette with atherosclerotic calcific ations in the aorta. There is no evidence of consolidation, mass or pleural effusion. Degenerative ch anges are seen in the spine and shoulders. IMPRESSION: Cardiomegaly without evidence of acute cardiopulmonary disease. POS: [facility]
[2017-12-16 23:03] LABS: CKMB 1.4 ng/mL (0-6.6); Troponin I 0.092 ng/mL (< 0.028)
[2017-12-17] MEDS ORDERED: Dextrose 50% Abboject 50 ML SYRINGE SLOW IVP PRN (01:03)
[2017-12-17] MEDS ORDERED: cloNIDine 0.1 MG TAB PO PRN (01:03)
[2017-12-17] MEDS ORDERED: HumaLOG 300 UNITS/3 ML VIAL SC PRN (01:03)
[2017-12-17] MEDS ORDERED: Acetaminophen 325 MG TAB PO PRN (01:03)
[2017-12-17] MEDS ORDERED: Ondansetron ODT 4 MG TAB PO PRN (01:03)
[2017-12-17] MEDS ORDERED: Dextrose 5% in Water 1,000 ML IV PRN (01:03)
[2017-12-17 01:20] VITALS: BMI 34.7
[2017-12-17 02:12] LABS: CKMB 1.2 ng/mL (0-6.6)
--- NOTE | 2017-12-17 02:43 | HP ---
DATE OF ADMISSION: 12/16/2017 TIME OF SERVICE: 2300. PRIMARY CARE PHYSICIAN: Eric Machado MD The patient is a resident at [facility] CHIEF COMPLAINT: Abdominal pain. HISTORY OF PRESENT ILLNESS: Ms. Howard is a 62-year-old female with, 1. History of CHF of unknown type. Last echocardiogram in 2013 showed an EF of 55%-60%. She does h ave peripheral vascular disease with aortofemoral runoff and PTCA by Dr. Castillo in 04/2016. 2. Diabetes mellitus type 2. 3. End-stage renal disease, on hemodialysis on Sunday, Sunday, and Sunday. Of note, the patient dialyzes at [facility] on [facility]. She is supposed to be on for about 4 hours per treatment. She is slated to have 3 liters taken off. She has left against medical advice every single time and then terminated dialysis treatments early. Last dialysis treatment was 2 days ago on Sunday. 4. Cataracts. 5. Coronary artery disease, status post myocardial infarction. She is unable to tell me when. 6. History of cerebrovascular accident. Just some dysphagia, but not on modified diet, and some rig ht-sided weakness. 7. Gastroesophageal reflux disease. 8. Fibromyalgia. PAST SURGICAL HISTORY: 1. Bilateral knee arthroscopy. 2. Cholecystectomy. 3. Hysterectomy. 4. Back surgery, remotely. 5. Left upper extremity fistula creation about a year ago. HOME MEDICATIONS: 1. Omeprazole 40 mg p.o. daily. 2. Zofran 4 mg p.o. t.i.d. p.r.n. 3. PhosLo 667 mg 1 tablet twice a day with snacks and 3 tablets t.i.d. with meals. 4. MiraLax 17 grams p.o. daily. 5. Renal vitamin daily. 6. Losartan 50 mg p.o. b.i.d. 7. Timolol 0.5% one drop both eyes daily. 8. Trolamine 10% daily. 9. Humalog sliding scale insulin with Lantus 4 units subcu at bedtime. 10. Latanoprost 0.005% 1 drop both eyes at bedtime. 11. DuoNeb t.i.d. p.r.n. 12. Gabapentin 100 mg p.o. t.i.d. 13. Clonidine 0.1 mg t.i.d. p.r.n. elevated blood pressure greater than 180 mmHg. 14. Amiodarone 100 mg daily. 15. Tylenol No. 3 p.r.n. 16. Two liters of oxygen at bedtime. 17. Aspirin 81 mg daily. 18. Eliquis 5 mg p.o. b.i.d. ALLERGIES: LYRICA, PENICILLIN, PHENERGAN, SULFA. She cannot recall her allergies. FAMILY HISTORY: Negative for history of clotting or bleeding disorder. No immune dysfunction. SOCIAL HISTORY: She lives by herself in [place]. She has been there for about 2 months [facility] she left the nursing facility. She does have a past history of tobacco, but has not smoked in some time. She currently has negative habits x3. REVIEW OF SYSTEMS: A 10-point review of systems was performed and was negative for all systems excep t as stated as per HPI. She is a FULL CODE. PHYSICAL EXAMINATION: VITAL SIGNS: Temperature 97.8, pulse 47, blood pressure in the ER was 217/82, respiratory rate 14, s aturating 97% on room air. While in dialysis as I was seeing her, blood pressure had trended downwar d in the 120s/70s. During my examination and interview, she quickly became unresponsive. Blood pres sure was 66/36 with a pulse of 32 and after stopping dialysis and giving a small amount of IV fluids bag, she was back up to 157/70 with the heart rate in the 40s. Within the next 2 minutes, she was ba ck up in the 190s/70s. GENERAL: She is awake. She is alert. She was oriented x3 initially. She is very slow speaking and does not appear to be in any acute distress. During her episode of hypotension, she did become unre sponsive, eyes glazed over, she did draw her left arm up, and otherwise stable. HEENT: Normocephalic, atraumatic. Pupils equal, round, and reactive bilaterally. Mucous membranes are moist. She has no visible lesions or thrush. NECK: Supple without lymphadenopathy, JVD, or thyromegaly. She had normal carotid upstrokes without bruits. LUNGS: Clear. She has good air movement bilaterally with no prolonged expiratory phase. She had no wheezes, rales, or rhonchi. CARDIOVASCULAR: She is bradycardic. She has been in the 40s since arrival to the floor until her bl ood pressure dropped to the 30s. She has normal S1, S2. I cannot appreciate murmurs. ABDOMEN: Obese. It is nontender. She has good bowel sounds in all 4 quadrants. EXTREMITIES: No cyanosis or clubbing. She had trace lower extremity edema from the mid tibial level down. I cannot palpate dorsalis pedis or posterior tibial pulses, but her feet are warm. Her skin is otherwise warm, moist, and well perfused. Left extremity fistula has a good palpable thrill. MUSCULOSKELETAL: Normal to inspection. Large joints appeared uninflamed. There are no palpable eff usions. NEUROLOGIC: Cranial nerves II-XII appeared grossly intact. Her sensation is intact. She has got so me 3-1/2 to 4/5 right upper and right lower extremity strength and 5/5 on the left. She does not hav e any other focal neurologic deficits. LABORATORY DATA: Sodium 136, potassium 5.4, chloride 94, bicarbonate 25, BUN 72, creatinine 7.22, gl ucose 189. Calcium was normal. LFTs showed an alkaline phosphatase of 189, AST 131, ALT of 90. CBC showed a white count of 5.8 with a normal differential, hemoglobin 10.9, hematocrit 32.5, and maylin telet count 184,000. CK-MB was normal at 1.4. Troponin I was elevated, but at her baseline is 0.076. Her dry weight repo rtedly is 80.3 kilograms. ASSESSMENT AND PLAN: 1. Volume overload, secondary to incomplete dialysis. Unfortunately, trying to get her to a [facility] dialysis tonight, she did drop her blood pressure. Dr. Bedolla, her boom operator, was consulted. W e will follow up on his recommendations. 2. History of diabetes mellitus type 2. We will hold her Lantus for now. We will continue low-dose sliding scale insulin and q.i.d. Accu-Cheks. She has been placed on a renal, heart healthy, diabeti c diet. 3. History of coronary artery disease. She states she had a heart attack in the past, but I cannot see records here. She has not had echocardiogram here in some time. May need to get one in the morn ing. 4. History of cerebrovascular accident with some right-sided residual weakness and dysphagia, curren tly stable. 5. Gastroesophageal reflux disease, on omeprazole. We will continue. 6. History of fibromyalgia. We will place the patient on observation status, follow up with Dr. Bedolla's recommendations. From a medical standpoint, there is not much more to do at this point. We will continue regular antihypert ensives for her high blood pressure.
[2017-12-17] MEDS ORDERED: Calcium Acetate 667 MG CAP PO PRN (08:00)
[2017-12-17] MEDS ORDERED: Sodium Chloride 0.9% 10 ML ONE (08:04)
[2017-12-17] MEDS ORDERED: Apixaban 5 MG TAB PO SCH (09:00)
[2017-12-17] MEDS ORDERED: Amiodarone 200 MG TAB PO SCH (09:00)
[2017-12-17] MEDS: hydrALAZINE 25 MG TAB PO SCH ×4 (09:19→20:02)
[2017-12-17] MEDS: Calcium Acetate 667 MG CAP PO SCH ×3 (09:20→17:13)
[2017-12-17] MEDS: Gabapentin 100 MG CAP PO SCH ×3 (09:20→20:03)
[2017-12-17] MEDS: Losartan 25 MG TAB PO SCH ×2 (09:21→20:03)
[2017-12-17] MEDS: Aspirin 81 mg Enteric Coated Tablet PO SCH (09:21)
[2017-12-17] MEDS: Folic Acid/Vit B Comp W-C PO SCH (09:22)
[2017-12-17] MEDS: Polyethylene Glycol 3350 17 GM Packet PO SCH (09:22)
[2017-12-17 09:37] LABS: Hemoglobin 9.5 g/dL (12.0-16.0); Platelet Count 172 thou/uL (130-400)
[2017-12-17] MEDS: Timolol 0.5% Ophth Soln 5 ml Bottle EA EYE SCH (10:38)
--- NOTE | 2017-12-17 12:59 | PDOC.PN ---
- Subjective Encounter Start Date: 12/17/17 Encounter Start Time: 08:35 Subjective: no chest pain or palp -: is awake and oriented well - Objective Resuscitation Status: Resuscitation Status FULL:Full Resuscitation MAR Reviewed: Yes Vital Signs & Weight: Vital Signs (12 hours) Temp Pulse Resp BP BP Pulse Ox 12/17/17 11:43 97.8 F 65 17 189/75 H 99 12/17/17 10:38 53 L 164/71 H 12/17/17 09:19 53 L 12/17/17 08:00 98.3 F 53 L 16 169/90 H 99 12/17/17 07:30 46 L 18 99 12/17/17 04:00 98.7 F 45 L 18 142/60 H 99 12/17/17 02:36 99 12/17/17 01:03 98.2 F 51 L 20 184/72 H 98 Weight Weight 189 lb 14.4 oz I&O: 12/16/17 12/17/17 12/18/17 06:59 06:59 06:59 Intake Total 90 Output Total 0 Balance 90 Result Diagrams: 12/17/17 09:06 12/17/17 09:06 Additional Labs: Accuchecks 12/17/17 12/17/17 12/17/17 12:12 06:02 05:14 POC Glucose 111 H 117 H 118 H 12/17/17 12/16/17 00:10 23:21 POC Glucose 128 H 133 H Phys Exam - Physical Examination HEENT: PERRLA, moist MMs Neck: no JVD, supple Respiratory: no wheezing, no rales Cardiovascular: RRR, no significant murmur Gastrointestinal: soft, no distention, positive bowel sounds Musculoskeletal: pulses present, edema present Neurological: moves all 4 limbs Psychiatric: normal affect, A&O x 3 Dx/Plan (1) ESRD (end stage renal disease) on dialysis Code(s): N18.6 - END STAGE RENAL DISEASE; Z99.2 - DEPENDENCE ON RENAL DIALYSIS Status: Chronic Comment: on M/W/ (2) PVD (peripheral vascular disease) Code(s): I73.9 - PERIPHERAL VASCULAR DISEASE, UNSPECIFIED Status: Chronic Comment: b/l PTCA to LE vessels (3) Afib Code(s): I48.91 - UNSPECIFIED ATRIAL FIBRILLATION Status: Chronic Qualifiers: Atrial fibrillation type: paroxysmal Qualified Code(s): I48.0 - Paroxysmal atrial fibrillation (4) CAD (coronary artery disease) Code(s): I25.10 - ATHSCL HEART DISEASE OF [place] CORONARY ARTERY W/O ANG PCTRS Status: Chronic Qualifiers: Coronary Disease-Associated Artery/Lesion type: [place] artery [place] vs. transplanted heart: [place] heart Associated angina: without angina Qualified Code(s): I25.10 - Atherosclerotic heart disease of [place] coronary artery without angina pectoris (5) Fluid overload Code(s): E87.70 - FLUID OVERLOAD, UNSPECIFIED Status: Acute (6) Sinus bradycardia Code(s): R00.1 - BRADYCARDIA, UNSPECIFIED Status: Acute (7) Anemia of renal disease Code(s): D63.1 - ANEMIA IN CHRONIC KIDNEY DISEASE Status: Chronic Comment: Stable, no evidence of acute blood loss (8) Diabetes type 2, controlled Code(s): E11.9 - TYPE 2 DIABETES MELLITUS WITHOUT COMPLICATIONS Status: Chronic Qualifiers: Diabetes mellitus shear operator helper insulin use: with shear operator helper use Diabetes mellitus complication status: with kidney complications Diabetes mellitus complication detail: with chronic kidney disease Chronic kidney disease stage : on chronic dialysis Qualified Code(s): E11.22 - Type 2 diabetes mellitus with diabetic chronic kidney disease; N18.6 - End stage renal disease; N18.6 - End stage renal disease; N18.6 - End stage renal disease; N18.6 - End stage renal disease; Z79.4 - group home (current) use of insulin; Z79.4 - conference service coordinator ( current) use of insulin; Z79.4 - conference service coordinator (current) use of insulin; Z79.4 - group home (current) use of insulin; Z99.2 - Dependence on renal dialysis; Z99.2 - Dependence on renal dialysis; Z99.2 - Dependence on renal dialysis; Z99.2 - Dependence on renal dialysis Comment: Stable, continue Levemir and Humalog ISS (9) History of CVA (cerebrovascular accident) Code(s): Z86.73 - PRSNL HX OF TIA (TIA), AND CEREB INFRC W/O RESID DEFICITS Status: Chronic Comment: Associated with R hemiparesis (10) Hypertension Code(s): I10 - ESSENTIAL (PRIMARY) HYPERTENSION Status: Chronic Qualifiers: Hypertension type: essential hypertension Qualified Code(s): I10 - Essential (primary) hypertension (11) Obesity (BMI 30.0-34.9) Code(s): E66.9 - OBESITY, UNSPECIFIED Status: Chronic (12) Physical deconditioning Code(s): R53.81 - OTHER MALAISE Status: Chronic - Plan dc amiodarone due to bradycardia, HR down to 40's -: hold eliquis if pt is going for pcm placement -: continue hydralazine 50mg qid, cozaar 50 bid -: dc plan per cardio/EP advice -: for next HD on sunday * . Review of Systems - Medications/Allergies Allergies/Adverse Reactions: Allergies Allergy/AdvReac Type Severity Reaction Status Date / Time Penicillins Allergy Intermediate THROAT Verified 12/16/17 21:57 SWELLING pregabalin [From Lyrica] Allergy Intermediate DILLIRIUM Verified 12/16/17 21:57 Sulfa (Sulfonamide Allergy Intermediate Nausea Verified 12/16/17 21:57 Antibiotics) promethazine [From Phenergan] Allergy Verified 12/16/17 21:57 Medications: Current Medications Acetaminophen (Tylenol) 650 mg PO Q4H PRN PRN Reason: Headache/Fever or Pain Hydrocodone Bitart/Acetaminophen ([place] 5/325) 1 tab PO Q4H PRN PRN Reason: Moderate Pain (4-6) Albuterol/Ipratropium (Duoneb) 3 ml NEB TID-RT [facility] Last Admin: 12/17/17 11:41 Dose: Not Given Aspirin (Ecotrin) 81 mg PO DAILY [facility] Last Admin: 12/17/17 09:21 Dose: 81 mg Calcium Acetate (Phoslo) 2,001 mg PO TID-WM [facility] Last Admin: 12/17/17 09:20 Dose: 2,001 mg Calcium Acetate (Phoslo) 667 mg PO BIDPRN PRN PRN Reason: .SNACKS Clonidine (Catapres) 0.1 mg PO TIDPRN PRN PRN Reason: Hypertension Dextrose/Water (Dextrose 50%) 25 gm SLOW IVP PRN PRN PRN Reason: Hypoglycemia Docusate Sodium (Colace) 100 mg PO DAILY PRN PRN Reason: Constipation Gabapentin (Neurontin) 100 mg PO TID [facility] Last Admin: 12/17/17 09:20 Dose: 100 mg Glucagon (Glucagon) 1 mg IM PRN PRN PRN Reason: Hypoglycemia Hydralazine HCl (Apresoline) 50 mg PO QID [facility] Last Admin: 12/17/17 09:19 Dose: 50 mg Dextrose/Water (D5w) 1,000 mls @ 0 mls/hr IV .Q0M PRN; As Directed PRN Reason: Hypoglycemia Insulin Human Lispro (Humalog) 0 units SC .MILD SLIDING SCALE PRN PRN Reason: Mild Correctional Scale Latanoprost (Xalatan 0.005% Ophth Soln) 1 drop EA EYE [facility] Losartan Potassium (Cozaar) 50 mg PO BID [facility] Last Admin: 12/17/17 09:21 Dose: 50 mg Ondansetron HCl (Zofran Odt) 4 mg PO TIDPRN PRN PRN Reason: Nausea Pantoprazole Sodium (Protonix) 40 mg PO DAILY [facility] Last Admin: 12/17/17 09:21 Dose: 40 mg Polyethylene Glycol (Miralax) 17 gm PO DAILY [facility] Last Admin: 12/17/17 09:22 Dose: Not Given Timolol Maleate (Timoptic 0.5% Ophth Soln) 1 drop EA EYE DAILY [facility] Last Admin: 12/17/17 10:38 Dose: 1 drop Vitamin B Complex/Vit C/Folic Acid (Nephro-Mayte Tablet) 1 tab PO DAILY [facility] Last Admin: 12/17/17 09:22 Dose: 1 tab
[2017-12-17] MEDS: HYDROcodone/Acetaminophen 5/325 mg Tablet PO PRN (17:13)
[2017-12-17] MEDS: Docusate 100 MG CAP PO PRN (19:00)
[2017-12-17] MEDS: Latanoprost 0.005% Ophth Soln 2.5 ml Bottle EA EYE SCH (20:03)
[2017-12-18] MEDS: Calcium Acetate 667 MG CAP PO SCH ×3 (07:45→18:00)
[2017-12-18] MEDS: Folic Acid/Vit B Comp W-C PO SCH (08:38)
[2017-12-18] MEDS: Gabapentin 100 MG CAP PO SCH ×3 (08:38→20:38)
[2017-12-18] MEDS: Aspirin 81 mg Enteric Coated Tablet PO SCH (08:38)
[2017-12-18] MEDS: hydrALAZINE 25 MG TAB PO SCH ×5 (08:38→20:39)
[2017-12-18] MEDS: Losartan 25 MG TAB PO SCH ×2 (08:38→20:39)
[2017-12-18] MEDS: Polyethylene Glycol 3350 17 GM Packet PO SCH (08:39)
--- NOTE | 2017-12-18 08:52 | CON ---
DATE OF CONSULTATION: 12/17/2017 ELECTROPHYSIOLOGY CONSULTATION REFERRING PHYSICIAN: Dr. Sumner. I am seeing Ms. Howard at our [facility] telemetry floor as an electrophysiology sharepoint consultant. Her problems are: 1. Persistent bradycardia. A. Chronic amiodarone use. 2. History of coronary artery disease, prior myocardial infarction. 3. Prior history of stroke. 4. Coronary artery risk factors including type 2 diabetes, end-stage renal disease, elevated BMI. 5. History of end-stage renal disease, on hemodialysis, with left upper arm fistula. 6. History of diastolic heart failure with preserved left ventricular function at 60% on echo in 06/2016. 7. History of spinal stenosis. ALLERGIES: PENICILLIN, GABAPENTIN, SULFA, PROMETHAZINE. MEDICATIONS AT HOME: Included Tylenol, Collbran, DuoNeb, Ecotrin, PhosLo, D5W, dextrose, Colace, Neurontin, glucagon, ephedrine, Humalog, Xalatan, Cozaar, Zofran, Protonix, MiraLax, Timoptic, Nephro-Mayte, and Cordarone twice a day, which was stopped on this admission. SUBJECTIVE: Mrs. Howard is somewhat of a poor historian, but it seems that during hemodialysis, she developed a dizzy spell, did not completely pass out. She could not complete her dialysis. Her blood pressure was low, hence unable to complete the full dialysis course. She was also noted to have bradycardia at that time in 30s and 40s. She had no chest pains to suggest current angina, no fever, chills or cough. No neurological deficits. No stroke-like symptoms, no bleeding issues. Rest of 12-point system otherwise unremarkable. PAST MEDICAL HISTORY: As above. She also has history of peripheral vascular disease, prior CVA, obesity, and diabetes. FAMILY HISTORY: Not contributory. SOCIAL HISTORY: Patient has current smoking, ETOH or drug abuse. FAMILY HISTORY: Negative for clotting or bleeding disorder, not contributory. SOCIAL HISTORY: The patient is in [place]. She is in a nursing facility. She used to smoke in the distant past. OBJECTIVE: VITAL SIGNS: Blood pressure is 117/71, heart rate 63, respiration is 18, temperature 97.7 degrees Fahrenheit. GENERAL: Alert and oriented woman in no apparent distress. NECK: Supple. Jugular veins not distended. CHEST: Coarse without crackles. CARDIAC: Heart sounds are regular rate and rhythm. No murmur or gallop. ABDOMEN: Benign. Bowel sounds positive. EXTREMITIES: No edema, clubbing or cyanosis. Pulses adequate. NEUROLOGIC: Patient is nonfocal. MUSCULOSKELETAL: No joint swelling or deformities. SKIN: Without rash. DATABASE: The EKGs reveal sinus bradycardia in the 30s and 40s. No more excessive bradycardia is seen in that. No pauses are documented on telemetry. LABORATORY DATA: White blood cell count 5.8, hemoglobin 10.9, platelet count is 184. APTT 38. Sodium 136, potassium 5.4, BUN is 72, creatinine is 7.22. AST 131, ALT 90. The troponin I 0.076 and 0.092. Chest x-ray shows cardiomegaly without evidence of cardiopulmonary disease. ASSESSMENT AND PLAN: 1. Mrs. Howard is a pleasant 62-year-old woman with prior history of end- stage renal disease, diabetes, hypertension, possibly remote coronary artery disease who also had a stroke in the past. She is here due to inability to complete her dialysis due to hypertension and bradycardia combination. She is noted to be on amiodarone. She is also on Eliquis, although it is not clear from her history whether she had a history of atrial fibrillation. This would suggest that. At this point, she is maintaining sinus rhythm, sinus bradycardia. The treatment for now is likely beneficial to be holding amiodarone. On the other hand, this lady has had prior hospitalization for bradycardia, likely amiodarone will be necessary for controlling her abnormal atrial rhythm. A consideration could be made for pacing therapy as well. Complicating issues are hemodialysis and also a left upper extremity fistula which limited the pacemaker placement to the right side. We will discuss with Dr. Castillo. 2. Chronic anticoagulation. I again suspect for atrial fibrillation, although not clearly documented in her chart to have this diagnosis. 3. We will follow with you. Thank you for allowing me to participate in the care of this patient. ELANA
[2017-12-18] MEDS ORDERED: Iopamidol 370 76% 50 ML VIAL FS ONE (09:46)
[2017-12-18] MEDS ORDERED: Lidocaine 1% (PF) 30 ML VIAL ONE ×2 (12:45→13:51)
--- NOTE | 2017-12-18 13:02 | PDOC.PN ---
- Subjective Encounter Start Date: 12/18/17 Encounter Start Time: 09:15 Subjective: no palp or chest pain or sob -: is npo for pcm insertion - Objective MAR Reviewed: Yes Vital Signs & Weight: Vital Signs (12 hours) Temp Pulse Resp BP Pulse Ox 12/18/17 08:23 97.4 F L 45 L 18 203/75 H 99 12/18/17 07:58 97.4 F L 45 L 18 99 12/18/17 05:15 98.3 F 37 L 18 161/66 H 99 Weight Weight 191 lb 11.2 oz I&O: 12/17/17 12/18/17 12/19/17 06:59 06:59 06:59 Intake Total 360 Output Total 0 Balance 360 Result Diagrams: 12/17/17 09:06 12/17/17 09:06 Additional Labs: Accuchecks 12/18/17 12/18/17 12/17/17 10:21 06:27 20:43 POC Glucose 110 109 140 H 12/17/17 17:27 POC Glucose 103 Phys Exam - Physical Examination HEENT: PERRLA, moist MMs Neck: no JVD, supple Respiratory: no wheezing, no rales Cardiovascular: no significant murmur bradycardic Gastrointestinal: soft, non-tender, positive bowel sounds Musculoskeletal: pulses present, edema present Neurological: non-focal, moves all 4 limbs Psychiatric: A&O x 3 Dx/Plan (1) Sinus bradycardia Code(s): R00.1 - BRADYCARDIA, UNSPECIFIED Status: Acute (2) ESRD (end stage renal disease) on dialysis Code(s): N18.6 - END STAGE RENAL DISEASE; Z99.2 - DEPENDENCE ON RENAL DIALYSIS Status: Chronic Comment: on M/W/F (3) PVD (peripheral vascular disease) Code(s): I73.9 - PERIPHERAL VASCULAR DISEASE, UNSPECIFIED Status: Chronic Comment: b/l PTCA to LE vessels (4) Afib Code(s): I48.91 - UNSPECIFIED ATRIAL FIBRILLATION Status: Chronic Qualifiers: Atrial fibrillation type: paroxysmal Qualified Code(s): I48.0 - Paroxysmal atrial fibrillation (5) CAD (coronary artery disease) Code(s): I25.10 - ATHSCL HEART DISEASE OF [place] CORONARY ARTERY W/O ANG PCTRS Status: Chronic Qualifiers: Coronary Disease-Associated Artery/Lesion type: [place] artery [place] vs. transplanted heart: [place] heart Associated angina: without angina Qualified Code(s): I25.10 - Atherosclerotic heart disease of [place] coronary artery without angina pectoris (6) Fluid overload Code(s): E87.70 - FLUID OVERLOAD, UNSPECIFIED Status: Acute (7) Anemia of renal disease Code(s): D63.1 - ANEMIA IN CHRONIC KIDNEY DISEASE Status: Chronic Comment: Stable, no evidence of acute blood loss (8) Diabetes type 2, controlled Code(s): E11.9 - TYPE 2 DIABETES MELLITUS WITHOUT COMPLICATIONS Status: Chronic Qualifiers: Diabetes mellitus nursing home insulin use: with nursing home use Diabetes mellitus complication status: with kidney complications Diabetes mellitus complication detail: with chronic kidney disease Chronic kidney disease stage : on chronic dialysis Qualified Code(s): E11.22 - Type 2 diabetes mellitus with diabetic chronic kidney disease; N18.6 - End stage renal disease; Z99.2 - Dependence on renal dialysis; Z99.2 - Dependence on renal dialysis; Z99.2 - Dependence on renal dialysis; N18.6 - End stage renal disease; N18.6 - End stage renal disease; N18.6 - End stage renal disease; Z79.4 - retirement (current ) use of insulin; Z79.4 - college archivist (current) use of insulin; Z79.4 - retirement (current) use of insulin; Z79.4 - retirement (current) use of insulin; Z99.2 - Dependence on renal dialysis Comment: Stable, continue Levemir and Humalog ISS (9) History of CVA (cerebrovascular accident) Code(s): Z86.73 - PRSNL HX OF TIA (TIA), AND CEREB INFRC W/O RESID DEFICITS Status: Chronic Comment: Associated with R hemiparesis (10) Hypertension Code(s): I10 - ESSENTIAL (PRIMARY) HYPERTENSION Status: Chronic Qualifiers: Hypertension type: essential hypertension Qualified Code(s): I10 - Essential (primary) hypertension (11) Obesity (BMI 30.0-34.9) Code(s): E66.9 - OBESITY, UNSPECIFIED Status: Chronic (12) Physical deconditioning Code(s): R53.81 - OTHER MALAISE Status: Chronic - Plan still bradycardic with hr dipping down to 40's -: for pcm insertion today -: HD after pcm is placed -: off amiod and eliquis -: on asp, hydralazine and cozaar * . Review of Systems - Medications/Allergies Allergies/Adverse Reactions: Allergies Allergy/AdvReac Type Severity Reaction Status Date / Time Penicillins Allergy Intermediate THROAT Verified 12/16/17 21:57 SWELLING pregabalin [From Lyrica] Allergy Intermediate DILLIRIUM Verified 12/16/17 21:57 Sulfa (Sulfonamide Allergy Intermediate Nausea Verified 12/16/17 21:57 Antibiotics) promethazine [From Phenergan] Allergy Verified 12/16/17 21:57 Medications: Current Medications Acetaminophen (Tylenol) 650 mg PO Q4H PRN PRN Reason: Headache/Fever or Pain Hydrocodone Bitart/Acetaminophen ([place] 5/325) 1 tab PO Q4H PRN PRN Reason: Moderate Pain (4-6) Last Admin: 12/17/17 17:13 Dose: 1 tab Albuterol/Ipratropium (Duoneb) 3 ml NEB TIDPRN PRN PRN Reason: SOB Aspirin (Ecotrin) 81 mg PO DAILY [facility] Last Admin: 12/18/17 08:38 Dose: 81 mg Calcium Acetate (Phoslo) 2,001 mg PO TID-[facility] Last Admin: 12/18/17 07:45 Dose: Not Given Calcium Acetate (Phoslo) 667 mg PO BIDPRN PRN PRN Reason: .SNACKS Dextrose/Water (Dextrose 50%) 25 gm SLOW IVP PRN PRN PRN Reason: Hypoglycemia Docusate Sodium (Colace) 100 mg PO DAILY PRN PRN Reason: Constipation Last Admin: 12/17/17 19:00 Dose: 100 mg Gabapentin (Neurontin) 100 mg PO TID [facility] Last Admin: 12/18/17 08:38 Dose: 100 mg Glucagon (Glucagon) 1 mg IM PRN PRN PRN Reason: Hypoglycemia Hydralazine HCl (Apresoline) 50 mg PO QID [facility] Last Admin: 12/18/17 08:38 Dose: 50 mg Dextrose/Water (D5w) 1,000 mls @ 0 mls/hr IV .Q0M PRN; As Directed PRN Reason: Hypoglycemia Insulin Human Lispro (Humalog) 0 units SC .MILD SLIDING SCALE PRN PRN Reason: Mild Correctional Scale Latanoprost (Xalatan 0.005% Ophth Soln) 1 drop EA EYE HS [facility] Last Admin: 12/17/17 20:03 Dose: 1 drop Losartan Potassium (Cozaar) 50 mg PO BID [facility] Last Admin: 12/18/17 08:38 Dose: 50 mg Ondansetron HCl (Zofran Odt) 4 mg PO TIDPRN PRN PRN Reason: Nausea Pantoprazole Sodium (Protonix) 40 mg PO DAILY [facility] Last Admin: 12/18/17 08:38 Dose: 40 mg Polyethylene Glycol (Miralax) 17 gm PO DAILY [facility] Last Admin: 12/18/17 08:39 Dose: Not Given Timolol Maleate (Timoptic 0.5% Ophth Soln) 1 drop EA EYE DAILY [facility] Last Admin: 12/17/17 10:38 Dose: 1 drop Vitamin B Complex/Vit C/Folic Acid (Nephro-Mayte Tablet) 1 tab PO DAILY [facility] Last Admin: 12/18/17 08:38 Dose: 1 tab
[2017-12-18] MEDS ORDERED: Clindamycin/D5W 600 mg/50 ml Premix Bag ONE (13:28)
[2017-12-18] MEDS ORDERED: Fentanyl 250 MCG/5 ML VIAL ONE ×2 (13:29→13:33)
[2017-12-18] MEDS ORDERED: Fentanyl 100 MCG/2 ML VIAL ONE (13:30)
[2017-12-18] MEDS ORDERED: Midazolam HCl 2 mg/2 ml Vial ONE (13:30)
--- NOTE | 2017-12-18 15:07 | PDOC.CTH ---
Cardiology Progress Note - Subjective EP progress note: Patient seen and evaluated. Doing well without new cardiac concerns or complaints. - Objective Vital Signs Temp Pulse Resp BP BP Pulse Ox 12/18/17 12:56 98.4 F 46 L 20 168/73 H 97 12/18/17 08:23 97.4 F L 45 L 18 203/75 H 99 12/18/17 07:58 97.4 F L 45 L 18 99 12/18/17 05:15 98.3 F 37 L 18 161/66 H 99 Weight 191 lb 11.2 oz 12/17/17 12/18/17 12/19/17 06:59 06:59 06:59 Intake Total 360 Output Total 0 Balance 360 - Physical Examination General/Neuro: alert & oriented x3, NAD Neck: carotid US brisk, no JVD present Lungs: CTA, unlabored respirations - Labs Result Diagrams: 12/17/17 09:06 12/17/17 09:06 Troponin/CKMB CK-MB (CK-2) 1.2 ng/mL (0-6.6) 12/17/17 01:38 Troponin I 0.080 ng/mL (< 0.028) H 12/17/17 01:38 - Assessment/Plan 1. Persistent minimally symptomatic bradycardia but requiring hospitalization with chronic amiodarone use 2. ESRD 3. Possible history of atrial arrhythmias, currently in sinus rhythm/bradycardia 4. Oral anticoagulation on Eliquis. Continue, but consider warfarin given her ESRD 5. Dual chamber pacemaker implant today for rate control in the setting of AF as well as for symptomatic bradycardia. Tolerated well without complication. Post implant antibiodics as ordered and pressure dressing as needed for if hematoma develops at incision. CXR in AM.
[2017-12-18] MEDS: HYDROcodone/Acetaminophen 5/325 mg Tablet PO PRN ×2 (15:34→20:39)
[2017-12-18] MEDS: Timolol 0.5% Ophth Soln 5 ml Bottle EA EYE SCH (15:39)
[2017-12-18] MEDS ORDERED: Acetaminophen/Codeine 30-300mg Tablet PO PRN ×2 (16:00)
[2017-12-18] MEDS ORDERED: cloNIDine 0.1 MG TAB PO PRN (17:08)
[2017-12-18] MEDS: Nitroglycerin 2% Ointment 1 INCH/1 GM Packet TOP SCH (17:58)
[2017-12-18] MEDS: Labetalol 100 MG TAB PO SCH (17:58)
[2017-12-18] MEDS: Latanoprost 0.005% Ophth Soln 2.5 ml Bottle EA EYE SCH (20:42)
[2017-12-19] MEDS: HYDROcodone/Acetaminophen 5/325 mg Tablet PO PRN ×4 (00:42→20:20)
[2017-12-19 05:15] LABS: #Eosinphils 0.1 thou/uL (0.0-0.7); #Lymphocytes 1.8 thou/uL (1.20-3.40); #Monocytes 0.6 thou/uL (0.11-0.59); #Neutrophils 1.8 thou/uL (1.40-6.50); %Eosinophils 2.9 % (0.0-10.0); %Lymphocytes 40.5 % (21.0-51.0); %Monocytes 13.3 % (0.0-10.0); %Neutrophils 42.2 % (42.0-75.0); Hemoglobin 8.4 g/dL (12.0-16.0); Mean Corpuscular HGB CONC 32.9 g/dL (32.0-36.0); Mean Corpuscular Hemoglobin 30.9 pg (27.0-31.0); Mean Corpuscular Volume 93.9 fl (81.0-99.0); Mean Platelet Volume 7.3 fL (7.4-10.4); Platelet Count 162 thou/uL (130-400); RBC Distribution Width 14.9 % (11.5-14.5); Red Blood Cell (RBC) Count 2.72 mill/uL (4.20-5.40); White Blood Cell (WBC) Count 4.3 thou/uL (4.8-10.8)
[2017-12-19] MEDS: Nitroglycerin 2% Ointment 1 INCH/1 GM Packet TOP SCH ×3 (05:36→21:45)
--- NOTE | 2017-12-19 07:35 | RAD ---
UPRIGHT PORTABLE CHEST 1 VIEW: HISTORY: A 62-year-old female with a history of 1 day status post pacemaker implant. FINDINGS: Right ICD. Cardiomegaly. Monitor leads overlie the chest. Stable increased markings bilaterally. No confluent pneumonia, overt edema, or pleural effusion. IMPRESSION: Status post right implantable cardioverter defibrillator. No acute process. No pneumothorax or pleu ral effusion. POS: [facility]
[2017-12-19] MEDS: Timolol 0.5% Ophth Soln 5 ml Bottle EA EYE SCH (08:08)
[2017-12-19] MEDS ORDERED: Heparin 10,000 UNITS/ 10 ML VIAL ONE (10:00)
--- NOTE | 2017-12-19 10:18 | PDOC.PN ---
- Subjective Encounter Start Date: 12/19/17 Encounter Start Time: 10:14 Ms. Howard was seen today in follow-up of symptomatic bradycardia. She had a pacemaker placed yesterday. She notes a full sensation in her right upper chest , she related to the procedure. She also notes some dyspnea whenshe lays back. She also notes some nausea with her medications. - Objective MAR Reviewed: Yes Vital Signs & Weight: Vital Signs (12 hours) Temp Pulse Resp BP Pulse Ox 12/19/17 07:58 98.8 F 60 18 217/84 H 98 12/19/17 05:07 100 12/19/17 04:00 97.9 F 60 18 143/64 H 100 12/19/17 00:40 100 12/19/17 00:00 98.4 F 60 18 149/65 H 100 Weight Weight 191 lb 11.2 oz I&O: 12/18/17 12/19/17 12/20/17 06:59 06:59 06:59 Intake Total 360 160 Output Total 0 0 Balance 360 160 Result Diagrams: 12/19/17 04:47 12/17/17 09:06 Additional Labs: Accuchecks 12/19/17 12/18/17 12/18/17 06:13 21:09 16:40 POC Glucose 138 H 152 H 114 H 12/18/17 10:21 POC Glucose 110 Phys Exam - Physical Examination HEENT: PERRLA Respiratory: no wheezing, no rales, no rhonchi, clear to auscultation bilateral Cardiovascular: RRR, no significant murmur, no rub Gastrointestinal: soft, non-tender, no distention, positive bowel sounds Musculoskeletal: no edema Dx/Plan (1) Bradycardia Code(s): R00.1 - BRADYCARDIA, UNSPECIFIED Status: Acute (2) CAD (coronary artery disease) Code(s): I25.10 - ATHSCL HEART DISEASE OF [place] CORONARY ARTERY W/O ANG PCTRS Status: Chronic Qualifiers: Coronary Disease-Associated Artery/Lesion type: [place] artery [place] vs. transplanted heart: [place] heart Associated angina: without angina Qualified Code(s): I25.10 - Atherosclerotic heart disease of [place] coronary artery without angina pectoris (3) Fluid overload Code(s): E87.70 - FLUID OVERLOAD, UNSPECIFIED Status: Acute (4) Diabetes type 2, controlled Code(s): E11.9 - TYPE 2 DIABETES MELLITUS WITHOUT COMPLICATIONS Status: Chronic Qualifiers: Diabetes mellitus skilled nursing insulin use: with skilled nursing use Diabetes mellitus complication status: with kidney complications Diabetes mellitus complication detail: with chronic kidney disease Chronic kidney disease stage : on chronic dialysis Qualified Code(s): E11.22 - Type 2 diabetes mellitus with diabetic chronic kidney disease; N18.6 - End stage renal disease; Z99.2 - Dependence on renal dialysis; Z99.2 - Dependence on renal dialysis; Z99.2 - Dependence on renal dialysis; N18.6 - End stage renal disease; N18.6 - End stage renal disease; N18.6 - End stage renal disease; Z79.4 - [facility] (current ) use of insulin; Z79.4 - superintendent terminal (current) use of insulin; Z79.4 - [facility] (current) use of insulin; Z79.4 - [facility] (current) use of insulin; Z99.2 - Dependence on renal dialysis Comment: Stable, continue Levemir and Humalog ISS (5) ESRD (end stage renal disease) on dialysis Code(s): N18.6 - END STAGE RENAL DISEASE; Z99.2 - DEPENDENCE ON RENAL DIALYSIS Status: Chronic Comment: HD per Renal service - Plan * Bradycardia- patient is s/p pace-maker placement, and clinically stable. * Paroxysmal Atrial fibrillation- as above heart rate is stable, and will re- start Eliquis in AM * ESRD- stable on dialysis * DM- blood glucose is stable * Acute on chronic diastolic heart failure- compensated * HTN- blood pressure is labile- will monitor * History of CVA- stable
[2017-12-19] MEDS: Gabapentin 100 MG CAP PO SCH ×3 (12:50→20:19)
[2017-12-19] MEDS: Calcium Acetate 667 MG CAP PO SCH ×3 (12:50→17:33)
[2017-12-19] MEDS: hydrALAZINE 25 MG TAB PO SCH ×4 (12:50→20:18)
[2017-12-19] MEDS: Polyethylene Glycol 3350 17 GM Packet PO SCH (13:03)
[2017-12-19] MEDS: Aspirin 81 mg Enteric Coated Tablet PO SCH (13:07)
[2017-12-19] MEDS: Folic Acid/Vit B Comp W-C PO SCH (13:07)
[2017-12-19] MEDS: Labetalol 100 MG TAB PO SCH ×2 (13:07→20:15)
[2017-12-19] MEDS: Losartan 25 MG TAB PO SCH ×2 (13:08→20:15)
[2017-12-19] MEDS ORDERED: Amiodarone 200 MG TAB PO SCH ×2 (16:30→17:45)
[2017-12-19] MEDS: Clindamycin 150 MG CAP PO SCH (20:19)
[2017-12-19] MEDS: Latanoprost 0.005% Ophth Soln 2.5 ml Bottle EA EYE SCH (20:20)
--- NOTE | 2017-12-19 22:36 | PDOC.EVN ---
Event Note - Event Note Event Note: RN called - Pt is refusing to take full dose of Hydralazine.
[2017-12-20] MEDS: HYDROcodone/Acetaminophen 5/325 mg Tablet PO PRN ×2 (04:19→19:34)
[2017-12-20] MEDS: Nitroglycerin 2% Ointment 1 INCH/1 GM Packet TOP SCH ×2 (06:01→21:27)
[2017-12-20] MEDS: cloNIDine 0.1 MG TAB PO PRN (06:01)
[2017-12-20] MEDS: Gabapentin 100 MG CAP PO SCH ×3 (09:48→22:32)
[2017-12-20] MEDS: Amiodarone 200 MG TAB PO SCH (09:49)
[2017-12-20] MEDS: Folic Acid/Vit B Comp W-C PO SCH (09:50)
[2017-12-20] MEDS: Clindamycin 150 MG CAP PO SCH ×3 (09:50→22:32)
[2017-12-20] MEDS: hydrALAZINE 25 MG TAB PO SCH ×4 (09:50→22:32)
[2017-12-20] MEDS: Calcium Acetate 667 MG CAP PO SCH ×3 (09:56→21:27)
[2017-12-20] MEDS: Losartan 25 MG TAB PO SCH ×2 (09:57→22:33)
[2017-12-20] MEDS: Labetalol 100 MG TAB PO SCH ×3 (09:57→22:40)
[2017-12-20] MEDS: Aspirin 81 mg Enteric Coated Tablet PO SCH (09:57)
[2017-12-20] MEDS: Timolol 0.5% Ophth Soln 5 ml Bottle EA EYE SCH (09:58)
[2017-12-20] MEDS: Polyethylene Glycol 3350 17 GM Packet PO SCH ×2 (09:58→21:35)
--- NOTE | 2017-12-20 14:07 | PDOC.PN ---
- Subjective Encounter Start Date: 12/20/17 Encounter Start Time: 14:05 Ms. Howard was seen today in follow-up. She says she feels like the pills are getting stuck in her throat when she swallows. It was difficult to tell if she has difficulty with food. - Objective MAR Reviewed: Yes Vital Signs & Weight: Vital Signs (12 hours) Temp Pulse Resp BP BP Pulse Ox 12/20/17 13:13 60 12/20/17 12:00 100 12/20/17 11:40 98.3 F 60 16 180/68 H 100 12/20/17 09:58 60 176/74 H 12/20/17 09:57 60 176/74 H 12/20/17 09:50 60 174/67 H 12/20/17 09:30 98.3 F 60 18 97 12/20/17 07:30 97.9 F 60 16 171/72 H 97 12/20/17 05:55 188/64 H 12/20/17 05:46 60 20 200/74 H 12/20/17 04:02 98.1 F 60 16 173/74 H 96 Weight Weight 186 lb 9.6 oz I&O: 12/19/17 12/20/17 12/21/17 06:59 06:59 06:59 Intake Total 160 310 Output Total 0 0 Balance 160 310 Result Diagrams: 12/19/17 04:47 12/17/17 09:06 Additional Labs: Accuchecks 12/20/17 12/20/17 12/19/17 10:39 05:38 21:01 POC Glucose 160 H 120 H 167 H 12/19/17 16:30 POC Glucose 136 H Phys Exam - Physical Examination HEENT: PERRLA Respiratory: no wheezing, no rales, no rhonchi, clear to auscultation bilateral Cardiovascular: RRR, no significant murmur, no rub Gastrointestinal: soft, non-tender, positive bowel sounds Musculoskeletal: no edema Dx/Plan (1) Bradycardia Code(s): R00.1 - BRADYCARDIA, UNSPECIFIED Status: Acute (2) CAD (coronary artery disease) Code(s): I25.10 - ATHSCL HEART DISEASE OF [place] CORONARY ARTERY W/O ANG PCTRS Status: Chronic Qualifiers: Coronary Disease-Associated Artery/Lesion type: [place] artery [place] vs. transplanted heart: [place] heart Associated angina: without angina Qualified Code(s): I25.10 - Atherosclerotic heart disease of [place] coronary artery without angina pectoris (3) Fluid overload Code(s): E87.70 - FLUID OVERLOAD, UNSPECIFIED Status: Acute (4) Diabetes type 2, controlled Code(s): E11.9 - TYPE 2 DIABETES MELLITUS WITHOUT COMPLICATIONS Status: Chronic Qualifiers: Diabetes mellitus equipment operator intermodal yard insulin use: with equipment operator intermodal yard use Diabetes mellitus complication status: with kidney complications Diabetes mellitus complication detail: with chronic kidney disease Chronic kidney disease stage : on chronic dialysis Qualified Code(s): E11.22 - Type 2 diabetes mellitus with diabetic chronic kidney disease; N18.6 - End stage renal disease; Z99.2 - Dependence on renal dialysis; Z99.2 - Dependence on renal dialysis; Z99.2 - Dependence on renal dialysis; N18.6 - End stage renal disease; N18.6 - End stage renal disease; N18.6 - End stage renal disease; Z79.4 - continuous churn buttermaker (current ) use of insulin; Z79.4 - snf (current) use of insulin; Z79.4 - continuous churn buttermaker (current) use of insulin; Z79.4 - continuous churn buttermaker (current) use of insulin; Z99.2 - Dependence on renal dialysis Comment: Stable, continue Levemir and Humalog ISS (5) ESRD (end stage renal disease) on dialysis Code(s): N18.6 - END STAGE RENAL DISEASE; Z99.2 - DEPENDENCE ON RENAL DIALYSIS Status: Chronic Comment: HD per Renal service - Plan * Bradycardia- she is s/p Pace-maker placement * Dysphagia to medications- will have speech to evaluate her * HTN- blood pressure has remained elevated- likely due to refusal to take blood pressure medications this morning * ESRD- stable * DM- blood glucose is stable * Discussed with Dr. Tan, will hold off re-starting Eliquis until about 2 weeks , after she has been re-evaluated, and the pace-maker site..
[2017-12-20] MEDS ORDERED: ALPRAZolam 0.25 MG TAB PO PRN (19:35)
[2017-12-20] MEDS ORDERED: hydrALAZINE 20 MG/ML VIAL SLOW IVP PRN (22:13)
[2017-12-20] MEDS ORDERED: Nitroglycerin 2% Ointment 1 INCH/1 GM Packet TOP PRN (22:13)
[2017-12-20] MEDS ORDERED: Labetalol HCl 100 MG/20 ML VIAL SLOW IVP PRN (22:13)
[2017-12-20] MEDS: Latanoprost 0.005% Ophth Soln 2.5 ml Bottle EA EYE SCH (22:41)
[2017-12-21] MEDS: Nitroglycerin 2% Ointment 1 INCH/1 GM Packet TOP SCH ×3 (05:19→21:55)
[2017-12-21] MEDS: Amiodarone 200 MG TAB PO SCH (09:35)
[2017-12-21] MEDS: Labetalol 100 MG TAB PO SCH ×2 (09:35→20:48)
[2017-12-21] MEDS: Gabapentin 100 MG CAP PO SCH ×3 (09:35→20:26)
[2017-12-21] MEDS: Clindamycin 150 MG CAP PO SCH ×3 (09:36→20:48)
[2017-12-21] MEDS: HYDROcodone/Acetaminophen 5/325 mg Tablet PO PRN ×2 (09:44→18:46)
[2017-12-21] MEDS: cloNIDine 0.1 MG TAB PO PRN (09:45)
[2017-12-21] MEDS: Aspirin 81 mg Enteric Coated Tablet PO SCH (09:45)
[2017-12-21] MEDS: Calcium Acetate 667 MG CAP PO SCH ×3 (09:46→18:11)
[2017-12-21] MEDS: hydrALAZINE 25 MG TAB PO SCH ×4 (09:46→20:48)
[2017-12-21] MEDS: Losartan 25 MG TAB PO SCH ×2 (09:46→21:54)
[2017-12-21] MEDS: Folic Acid/Vit B Comp W-C PO SCH (09:46)
[2017-12-21] MEDS: Docusate 100 MG CAP PO PRN (09:58)
--- NOTE | 2017-12-21 11:51 | PDOC.PN ---
- Subjective Encounter Start Date: 12/21/17 Encounter Start Time: 11:48 Ms. Howard was seen today in follow-up. She still complains of the feeling like medications get stuck in her throat. - Objective MAR Reviewed: Yes Vital Signs & Weight: Vital Signs (12 hours) Temp Pulse Resp BP BP Pulse Ox 12/21/17 09:46 60 12/21/17 09:45 186/77 H 12/21/17 09:35 60 18 186/77 H 186/77 H 12/21/17 04:15 97.9 F 60 16 161/67 H 98 12/21/17 01:00 60 16 184/77 H 100 12/21/17 00:58 100 Weight Weight 188 lb I&O: 12/20/17 12/21/17 12/22/17 06:59 06:59 06:59 Intake Total 310 273 Output Total 0 Balance 310 273 Result Diagrams: 12/19/17 04:47 12/17/17 09:06 Additional Labs: Accuchecks 12/21/17 12/21/17 12/20/17 11:36 06:05 20:55 POC Glucose 190 H 104 152 H 12/20/17 16:34 POC Glucose 100 Phys Exam - Physical Examination HEENT: PERRLA, sclera anicteric Respiratory: no wheezing, no rales, no rhonchi, clear to auscultation bilateral Cardiovascular: RRR, no significant murmur, no rub Gastrointestinal: soft, non-tender, positive bowel sounds Musculoskeletal: no edema Dx/Plan (1) Bradycardia Code(s): R00.1 - BRADYCARDIA, UNSPECIFIED Status: Acute (2) CAD (coronary artery disease) Code(s): I25.10 - ATHSCL HEART DISEASE OF [place] CORONARY ARTERY W/O ANG PCTRS Status: Chronic Qualifiers: Coronary Disease-Associated Artery/Lesion type: [place] artery [place] vs. transplanted heart: [place] heart Associated angina: without angina Qualified Code(s): I25.10 - Atherosclerotic heart disease of [place] coronary artery without angina pectoris (3) Fluid overload Code(s): E87.70 - FLUID OVERLOAD, UNSPECIFIED Status: Resolved (4) Diabetes type 2, controlled Code(s): E11.9 - TYPE 2 DIABETES MELLITUS WITHOUT COMPLICATIONS Status: Chronic Qualifiers: Diabetes mellitus terminal operator insulin use: with terminal operator use Diabetes mellitus complication status: with kidney complications Diabetes mellitus complication detail: with chronic kidney disease Chronic kidney disease stage : on chronic dialysis Qualified Code(s): E11.22 - Type 2 diabetes mellitus with diabetic chronic kidney disease; N18.6 - End stage renal disease; Z99.2 - Dependence on renal dialysis; Z99.2 - Dependence on renal dialysis; Z99.2 - Dependence on renal dialysis; N18.6 - End stage renal disease; N18.6 - End stage renal disease; N18.6 - End stage renal disease; Z79.4 - alf (current ) use of insulin; Z79.4 - marine oil terminal superintendent (current) use of insulin; Z79.4 - marine oil terminal superintendent (current) use of insulin; Z79.4 - marine oil terminal superintendent (current) use of insulin; Z99.2 - Dependence on renal dialysis Comment: Stable, continue Levemir and Humalog ISS (5) ESRD (end stage renal disease) on dialysis Code(s): N18.6 - END STAGE RENAL DISEASE; Z99.2 - DEPENDENCE ON RENAL DIALYSIS Status: Chronic Comment: HD per Renal service - Plan * ? Dysphagia- awaiting swallowing study * Bradycardia- she has had pacemaker placed- and is functioning fine * ESRD- stable * DM- blood glucose is stable * Hopefully back to [place] once swallowing is assessed.
[2017-12-21] MEDS: Timolol 0.5% Ophth Soln 5 ml Bottle EA EYE SCH (11:53)
[2017-12-21] MEDS: Latanoprost 0.005% Ophth Soln 2.5 ml Bottle EA EYE SCH (20:34)
[2017-12-21] MEDS: Docusate Sodium 100 MG/10 ML UDCUP PO SCH (20:48)
[2017-12-22] MEDS: Aspirin 81 mg Enteric Coated Tablet PO SCH (08:58)
[2017-12-22] MEDS: hydrALAZINE 25 MG TAB PO SCH ×2 (08:58→12:21)
[2017-12-22] MEDS: Gabapentin 100 MG CAP PO SCH (08:59)
[2017-12-22] MEDS: Polyethylene Glycol 3350 17 GM Packet PO SCH (09:48)
[2017-12-22] MEDS: Folic Acid/Vit B Comp W-C PO SCH (09:48)
[2017-12-22] MEDS: Losartan 25 MG TAB PO SCH (09:48)
[2017-12-22] MEDS: Docusate Sodium 100 MG/10 ML UDCUP PO SCH (09:48)
[2017-12-22] MEDS: Labetalol 100 MG TAB PO SCH (09:48)
[2017-12-22] MEDS: Nitroglycerin 2% Ointment 1 INCH/1 GM Packet TOP SCH (09:48)
[2017-12-22] MEDS: Clindamycin 150 MG CAP PO SCH (09:48)
[2017-12-22] MEDS: Amiodarone 200 MG TAB PO SCH (09:48)
[2017-12-22] MEDS: Calcium Acetate 667 MG CAP PO SCH ×2 (09:48→12:21)
[2017-12-22] MEDS: Timolol 0.5% Ophth Soln 5 ml Bottle EA EYE SCH (09:49)
--- NOTE | 2017-12-22 11:08 | PDOC.PN ---
- Subjective Encounter Start Date: 12/22/17 Encounter Start Time: 11:05 Ms. Howard was seen today in follow-up. She says she feels better today, as she now " knows what the problem is" She is referring to the medications. - Objective MAR Reviewed: Yes Vital Signs & Weight: Vital Signs (12 hours) Temp Pulse Resp BP Pulse Ox 12/22/17 09:49 60 12/22/17 09:48 60 12/22/17 08:58 60 12/22/17 08:00 98.4 F 60 16 152/68 H 99 12/22/17 05:28 152/54 H 12/22/17 04:00 98.1 F 60 12 99 Weight Weight 177 lb 1.6 oz I&O: 12/21/17 12/22/17 12/23/17 06:59 06:59 06:59 Intake Total 273 1060 Output Total 3500 Balance 273 -2440 Result Diagrams: 12/19/17 04:47 12/17/17 09:06 Additional Labs: Accuchecks 12/22/17 12/21/17 12/21/17 05:57 20:31 18:36 POC Glucose 121 H 245 H 138 H 12/21/17 12/21/17 17:13 11:36 POC Glucose 121 H 190 H Phys Exam - Physical Examination HEENT: PERRLA Respiratory: no wheezing, no rales, no rhonchi, clear to auscultation bilateral Cardiovascular: RRR, no significant murmur, no rub Gastrointestinal: soft, non-tender, no distention, positive bowel sounds Musculoskeletal: edema present trace pedal edema Dx/Plan (1) Bradycardia Code(s): R00.1 - BRADYCARDIA, UNSPECIFIED Status: Acute (2) CAD (coronary artery disease) Code(s): I25.10 - ATHSCL HEART DISEASE OF [place] CORONARY ARTERY W/O ANG PCTRS Status: Chronic Qualifiers: Coronary Disease-Associated Artery/Lesion type: [place] artery [place] vs. transplanted heart: [place] heart Associated angina: without angina Qualified Code(s): I25.10 - Atherosclerotic heart disease of [place] coronary artery without angina pectoris (3) Fluid overload Code(s): E87.70 - FLUID OVERLOAD, UNSPECIFIED Status: Resolved (4) Diabetes type 2, controlled Code(s): E11.9 - TYPE 2 DIABETES MELLITUS WITHOUT COMPLICATIONS Status: Chronic Qualifiers: Diabetes mellitus long winder tender insulin use: with long winder tender use Diabetes mellitus complication status: with kidney complications Diabetes mellitus complication detail: with chronic kidney disease Chronic kidney disease stage : on chronic dialysis Qualified Code(s): E11.22 - Type 2 diabetes mellitus with diabetic chronic kidney disease; N18.6 - End stage renal disease; Z99.2 - Dependence on renal dialysis; Z99.2 - Dependence on renal dialysis; Z99.2 - Dependence on renal dialysis; N18.6 - End stage renal disease; N18.6 - End stage renal disease; N18.6 - End stage renal disease; Z79.4 - alf (current ) use of insulin; Z79.4 - alf (current) use of insulin; Z79.4 - alf (current) use of insulin; Z79.4 - intermediate manager (current) use of insulin; Z99.2 - Dependence on renal dialysis Comment: Stable, continue Levemir and Humalog ISS (5) ESRD (end stage renal disease) on dialysis Code(s): N18.6 - END STAGE RENAL DISEASE; Z99.2 - DEPENDENCE ON RENAL DIALYSIS Status: Chronic Comment: HD per Renal service - Plan * Sinus Bradycardia- symptomatic - s/p pacemaker placement * Dysphagia- this is mild is likely from a previous stroke. She has been evaluated by speech therapy a recommendations are noted * HTN- blood pressure is better * She is stable for discharge back to [place].
[2017-12-22 12:12] VITALS: BP 171/65; TEMP 98.2
[2017-12-22] MEDS: HYDROcodone/Acetaminophen 5/325 mg Tablet PO PRN (12:56)
--- NOTE | 2017-12-22 21:23 | DIS ---
DATE OF ADMISSION: 12/17/2017 DATE OF DISCHARGE: 12/22/2017 PRIMARY CARE PHYSICIAN: Eric Machado M.D. DISCHARGE DISPOSITION: Back to the [facility]. DISCHARGE DIAGNOSES: 1. Symptomatic sinus bradycardia, status post pacemaker placement. 2. End-stage renal disease, on hemodialysis. 3. Hypertension. 4. History of cerebrovascular accident with right-sided weakness. 5. Gastroesophageal reflux disease. 6. History of fibromyalgia. 7. Diabetes mellitus type 2. 8. Chronic diastolic heart failure and her ejection fraction is 55%-60%. CODE STATUS: FULL CODE. ALLERGIES: PENICILLIN, PREGABALIN, SULFA, and PROMETHAZINE. HOSPITAL COURSE: Ms. Howard is a pleasant 62-year-old female who presented to the emergency room or iginally complaining of abdominal pain. On further conversations with the patient, it was found that this symptom tends to occur when she is volume overloaded. She was taken urgently to dialysis and t his symptom actually improved. During her hospital stay, it was noted that she had a significant bra dycardia, which was symptomatic. Cardiology was consulted and it was felt that she would require a p acemaker. She was seen by finishing powder press operator and the patient did undergo pacemaker placement. She tolerated the procedure well. Postoperatively, the patient did complain of some difficulty with swal lowing. She says that she had actually had this problem off and on since she had had what sounds lik e a major cardiac event at an outside hospital several months ago. I suspect she may have suffered a stroke at that time. She was evaluated by Speech Therapy and it was recommended that she be placed on a mechanical soft diet with extra sauces as well as to crush her medications and she could be plac ed on thick liquids, but no straws. Since this has been a chronic problem and she does have a histor y of previous cerebrovascular accident, I suspect that this was the culprit for her dysphagia. It wa s likely made worse post anesthesia for the procedure and actually seemed to be improving over the co urse of the following days. She also had some elevation in her blood pressure, but this is because s he was refusing to take her medications due to the sensation of dysphagia and after she was able to b e convinced to take her medications by crushing the pills, her blood pressure readings improved. She is therefore stable for discharge back to the [facility] [facility]. She has been taken off of Eliquis tempo rarily and the plan is to restart Eliquis after approximately 2 weeks and this will be handled by Dr. Tan in his office.
== END 2017-12-22 14:29 | DRG 242 ==
LOC: ERS 17:49 → INTOOBSV 21:12 → 2NO 21:12 → OBSVTOIN 12-17 11:53
PROVIDERS: ADMIT Internal Medicine; ATTEND Internal Medicine
PROC: 0JH606Z Insertion of Pacemaker, Dual Chamber into Chest Subcutaneous Tissue and Fascia, Open Approach (ICD-10-PCS; principal; 2017-12-18)
PROC: 02H63JZ Insertion of Pacemaker Lead into Right Atrium, Percutaneous Approach (ICD-10-PCS; 2017-12-18)
PROC: 02HK3JZ Insertion of Pacemaker Lead into Right Ventricle, Percutaneous Approach (ICD-10-PCS; 2017-12-18)
PROC: 5A1D70Z Performance of Urinary Filtration, Intermittent, Less than 6 Hours Per Day (ICD-10-PCS; 2017-12-21)
DX: R00.1 Bradycardia, unspecified (principal); N18.6 End stage renal disease; I13.2 Hypertensive heart and chronic kidney disease with heart failure and with stage 5 chronic kidney disease, or end stage renal disease; E11.22 Type 2 diabetes mellitus with diabetic chronic kidney disease; I69.351 Hemiplegia and hemiparesis following cerebral infarction affecting right dominant side; I50.32 Chronic diastolic (congestive) heart failure; I73.9 Peripheral vascular disease, unspecified; Z99.2 Dependence on renal dialysis; Z91.15 Patient's noncompliance with renal dialysis; K21.9 Gastro-esophageal reflux disease without esophagitis; I25.10 Atherosclerotic heart disease of native coronary artery without angina pectoris; I25.2 Old myocardial infarction; I69.391 Dysphagia following cerebral infarction; R13.10 Dysphagia, unspecified; Z87.891 Personal history of nicotine dependence; E66.9 Obesity, unspecified; Z68.35 Body mass index [BMI] 35.0-35.9, adult
CPT/HCPCS: 33208; 36005; 36415; 36416; 71045; 75820; 80053; 82550; 82553; 82565; 84484; 85014; 85018; 85025; 85049; 85730; 90935; 93005; 93306; 94640; 99152; 99153; A4216; C1785; C1898; G0257; G8996-GN-CL; G8997-GN-CK; J0360; J1644; J2001; J2250; J3010; J3490; J7620; Q0162

== ENCOUNTER 2018-01-13 16:19 | Emergency (ER) | payer OTHER ==
[2018-01-13 17:06] LABS: #Eosinphils 0.2 thou/uL (0.0-0.7); #Lymphocytes 1.7 thou/uL (1.20-3.40); #Monocytes 0.4 thou/uL (0.11-0.59); #Neutrophils 2.3 thou/uL (1.40-6.50); %Basophils 0.9 % (0.0-1.0); %Eosinophils 3.3 % (0.0-10.0); %Lymphocytes 36.9 % (21.0-51.0); %Monocytes 9.1 % (0.0-10.0); %Neutrophils 49.8 % (42.0-75.0); Hemoglobin 8.1 g/dL (12.0-16.0); Mean Corpuscular HGB CONC 33.7 g/dL (32.0-36.0); Mean Corpuscular Volume 98.1 fl (81.0-99.0); Mean Platelet Volume 7.5 fL (7.4-10.4); Platelet Count 180 thou/uL (130-400); RBC Distribution Width 15.2 % (11.5-14.5); Red Blood Cell (RBC) Count 2.44 mill/uL (4.20-5.40); White Blood Cell (WBC) Count 4.7 thou/uL (4.8-10.8)
[2018-01-13 17:27] LABS: ALT (SGPT) 60 U/L (8-55); AST (SGOT) 83 U/L (5-34); Albumin 3.3 g/dL (3.4-4.8); Alkaline Phosphatase 157 U/L (40-150); Anion Gap 19 mmol/L (10-20); BUN (Urea Nitrogen) 53 mg/dL (9.8-20.1); Bilirubin, Total 0.7 mg/dL (0.2-1.2); Calc. Creatinine Clearance 0 mL/min (70-130); Calcium 8.7 mg/dL (7.8-10.44); Carbon Dioxide 26 mmol/L (23-31); Chloride 97 mmol/L (98-107); Estimated GFR-MDRD 8; Globulin 3.9 g/dL (2.4-3.5); Glucose 206 mg/dL (80-115); Potassium 4.8 mmol/L (3.5-5.1); Protein, Total 7.2 g/dL (6.0-8.3); Sodium 137 mmol/L (136-145)
[2018-01-13 17:31] LABS: CKMB 1.6 ng/mL (0-6.6)
--- NOTE | 2018-01-13 18:21 | RAD ---
AP VIEW CHEST: Date: 01/13/18 INDICATION: Dyspnea. COMPARISON: Prior exam dated 12/19/17. FINDINGS: Stable cardiomegaly. Dual lead pacemaker is stable. No pleural effusion or pneumothorax is evident. N o acute osseous abnormality is evident. IMPRESSION: Stable cardiomegaly. No definite acute abnormality. POS: [facility]
== END 2018-01-13 19:31 | disposition home or self-care (01) ==
LOC: ERS 16:19
DX: E87.70 Fluid overload, unspecified (principal); E11.22 Type 2 diabetes mellitus with diabetic chronic kidney disease; I12.0 Hypertensive chronic kidney disease with stage 5 chronic kidney disease or end stage renal disease; I50.9 Heart failure, unspecified; N18.6 End stage renal disease; I25.2 Old myocardial infarction; K21.9 Gastro-esophageal reflux disease without esophagitis; F41.9 Anxiety disorder, unspecified; H26.9 Unspecified cataract; Z87.891 Personal history of nicotine dependence; Z99.2 Dependence on renal dialysis; Z79.4 Long term (current) use of insulin; Z79.899 Other long term (current) drug therapy
CPT/HCPCS: 71045; 80053; 82553; 83880; 84484; 85025; 93005

== ENCOUNTER 2018-06-19 00:09 | Emergency (ER) | payer OTHER ==
[2018-06-19] MEDS ORDERED: Ketorolac Tromethamine 30 MG/ML VIAL ONE (00:30)
[2018-06-19] MEDS ORDERED: Methocarbamol 1 GM in Sodium Chloride 0.9% 100 ML IVPB SCH (00:45)
[2018-06-19 00:47] LABS: #Basophils 0.1 thou/uL (0.0-0.2); #Eosinphils 0.2 thou/uL (0.0-0.7); #Lymphocytes 1.7 thou/uL (1.20-3.40); #Monocytes 0.7 thou/uL (0.11-0.59); #Neutrophils 3.9 thou/uL (1.40-6.50); %Basophils 1.1 % (0.0-1.0); %Eosinophils 3.7 % (0.0-10.0); %Lymphocytes 25.1 % (21.0-51.0); %Monocytes 11.2 % (0.0-10.0); %Neutrophils 58.9 % (42.0-75.0); Hemoglobin 8.7 g/dL (12.0-16.0); Mean Corpuscular HGB CONC 31.8 g/dL (32.0-36.0); Mean Corpuscular Hemoglobin 31.8 pg (27.0-31.0); Platelet Count 191 thou/uL (130-400); RBC Distribution Width 15.7 % (11.5-14.5); Red Blood Cell (RBC) Count 2.74 mill/uL (4.20-5.40); White Blood Cell (WBC) Count 6.6 thou/uL (4.8-10.8)
[2018-06-19 01:10] LABS: ALT (SGPT) 67 U/L (8-55); AST (SGOT) 78 U/L (5-34); Albumin 3.6 g/dL (3.4-4.8); Alkaline Phosphatase 113 U/L (40-150); Anion Gap 20 mmol/L (10-20); BUN (Urea Nitrogen) 68 mg/dL (9.8-20.1); Bilirubin, Total 0.7 mg/dL (0.2-1.2); Calc. Creatinine Clearance 0 mL/min (70-130); Calcium 9.7 mg/dL (7.8-10.44); Carbon Dioxide 25 mmol/L (23-31); Chloride 97 mmol/L (98-107); Estimated GFR-MDRD 8; Globulin 4.4 g/dL (2.4-3.5); Glucose 205 mg/dL (80-115); Potassium 5.4 mmol/L (3.5-5.1); Sodium 137 mmol/L (136-145)
[2018-06-19 01:13] LABS: Troponin I 0.076 ng/mL (< 0.028)
[2018-06-19] MEDS ORDERED: Acetaminophen 500 MG TAB ONE (03:22)
--- NOTE | 2018-06-19 08:32 | CT ---
PRELIMINARY REPORT/[facility]/EMERGENTY AFTER-HOURS PROCEDURE CT Abdomen and Pelvis Without Intravenous Contrast EXAM DATE/TIME: 06/19/2018 1:29 AM CLINICAL HISTORY: 63 years old, female; Pain; Other: Bacl pain; Patient HX: Patient presents C/O low back pain, bilater al foot pain and abdominal pain. Patient has chronic foot pain. TECHNIQUE: Axial computed tomography images of the abdomen and pelvis without intravenous contrast. Coronal reformatted images were created and reviewed. COMPARISON: No relevant prior studies available. FINDINGS: Lower thorax: Cardiomegaly. Pacemaker. Left basal subsegmental atelectasis. ABDOMEN: Liver: Unremarkable. Gallbladder and bile ducts: Cholecystectomy. Pancreas: Unremarkable. Spleen: Unremarkable. Adrenals: Unremarkable. Kidneys and ureters: 1.6 cm left renal cyst. No stone or hydronephrosis. Stomach and bowel: Stool-filled colon. Otherwise unremarkable. No evidence of obstruction. Appendix: No evidence of appendicitis. PELVIS: Bladder: Unremarkable as visualized. Reproductive: Hysterectomy. Subperitoneal space: Nonspecific presacral fat stranding. ABDOMEN and PELVIS: Intraperitoneal space: No free air. No significant fluid collection. Bones/joints: Bilateral hip osteoarthritic changes, greater on the right. Osteoarthritic changes at b oth sacroiliac joints. Diffuse spondylosis, most prominent at L5-S1. Moderate lower lumbar facet arth rosis. No acute fracture. Soft tissues: Unremarkable. Vasculature: Moderate atherosclerotic calcifications. Lymph nodes: No enlarged lymph nodes. IMPRESSION: No acute findings. Thank you for allowing us to participate in the care of your patient. Dictated and Authenticated by: Randell Smith MD 06/19/2018 2:18 AM Central Time ([place] & [place]) FINAL REPORT ABDOMEN CT WITHOUT CONTRAST PELVIC CT WITHOUT CONTRAST: Date: 06/19/18 HISTORY: Back pain x2 months, worsening tonight. COMPARISON: None. FINDINGS: This report is in agreement with the preliminary report by Jesusita. There is no acute abnormality in the abdomen or pelvis. No evidence of obstructive uropathy. There is evidence of an appendicolith withou t evidence of appendicitis. Exophytic hypodensity emanating from the mid pole of the right kidney wit h an attenuation coefficient of 21 Hounsfield units suggests a possibly complex cyst. Nonemergent gabe al ultrasound is recommended. There is nonspecific stranding of the presacral fat. Degenerative changes of the left and right hip a re noted. Vacuum disc phenomenon lumbosacral junction. Vacuum joint phenomenon in both SI joints. IMPRESSION: 1. Complex cystic lesion left kidney, incompletely evaluated. Ultrasound is recommended. 2. Degenerative changes of the lumbosacral junction, as well as vacuum phenomenon in both SI joints. CODE T. POS: [facility]
== END 2018-06-19 03:53 | disposition home or self-care (01) ==
LOC: ERS 00:09
DX: R10.9 Unspecified abdominal pain (principal); M54.5 Low back pain; G89.29 Other chronic pain; K21.9 Gastro-esophageal reflux disease without esophagitis; M79.672 Pain in left foot; M79.671 Pain in right foot; I13.2 Hypertensive heart and chronic kidney disease with heart failure and with stage 5 chronic kidney disease, or end stage renal disease; N18.6 End stage renal disease; E11.22 Type 2 diabetes mellitus with diabetic chronic kidney disease; I25.2 Old myocardial infarction
CPT/HCPCS: 36415; 74176; 80053; 82553; 84484; 85025; 93005; 96365; J1885; J2800; J7050

== ENCOUNTER 2018-07-24 12:36 | Emergency (ER) | payer OTHER ==
[2018-07-24 14:01] LABS: #Eosinphils 0.2 thou/uL (0.0-0.7); #Lymphocytes 1.2 thou/uL (1.20-3.40); #Monocytes 0.5 thou/uL (0.11-0.59); #Neutrophils 2.7 thou/uL (1.40-6.50); %Basophils 0.7 % (0.0-1.0); %Lymphocytes 25.3 % (21.0-51.0); %Monocytes 11.4 % (0.0-10.0); %Neutrophils 57.6 % (42.0-75.0); Hemoglobin 8.4 g/dL (12.0-16.0); Mean Corpuscular HGB CONC 31.7 g/dL (32.0-36.0); Mean Corpuscular Hemoglobin 30.8 pg (27.0-31.0); Mean Corpuscular Volume 97.3 fL (78.0-98.0); Mean Platelet Volume 6.7 fL (7.4-10.4); Platelet Count 216 thou/uL (130-400); RBC Distribution Width 14.2 % (11.5-14.5); Red Blood Cell (RBC) Count 2.72 mill/uL (4.20-5.40); White Blood Cell (WBC) Count 4.7 thou/uL (4.8-10.8)
[2018-07-24 14:23] LABS: ALT (SGPT) 23 U/L (8-55); AST (SGOT) 41 U/L (5-34); Albumin 3.3 g/dL (3.4-4.8); Alkaline Phosphatase 72 U/L (40-150); Anion Gap 19 mmol/L (10-20); BUN (Urea Nitrogen) 42 mg/dL (9.8-20.1); Bilirubin, Total 0.7 mg/dL (0.2-1.2); Calc. Creatinine Clearance 0 mL/min (70-130); Calcium 8.7 mg/dL (7.8-10.44); Carbon Dioxide 25 mmol/L (23-31); Chloride 95 mmol/L (98-107); Estimated GFR-MDRD 8; Globulin 3.9 g/dL (2.4-3.5); Glucose 106 mg/dL (80-115); Protein, Total 7.2 g/dL (6.0-8.3); Sodium 135 mmol/L (136-145)
--- NOTE | 2018-07-24 15:49 | CT ---
CT ABDOMEN AND PELVIS WITHOUT CONTRAST: 07/24/18 HISTORY: Nausea, vomiting. Abdominal pain. COMPARISON: CT 06/19/18. FINDINGS: There is atelectatic changes in the lung bases. No pericardial effusion. Heart size is enlarged. No nephroureterolithiasis or hydroureteronephrosis. No secondary evidence of a recently passed stone. There is a hypodensity superior pole left kidney similar for which a nonemergent followup ultrasound is recommended. There is moderate stool within the rectal vault. There is a similar appearance to the presacral giorgi a. There is severe degenerative changes of both hips worse on the right. IMPRESSION: 1. No nephroureterolithiasis or hydroureteronephrosis. No secondary evidence of recently passed stone. 2. Moderate stool burden within the rectal vault with presacral edema suggesting stercoral colit is. 3. Similar appearance to the cystic lesion superior pole left kidney. Nonemergent followup ultra sound is recommended. 4. Symmetric bilateral hip flexor and extensor muscle atrophy. POS: [facility]
== END 2018-07-24 16:18 | disposition home or self-care (01) ==
LOC: ERS 12:36
DX: K59.00 Constipation, unspecified (principal); E11.9 Type 2 diabetes mellitus without complications; I25.2 Old myocardial infarction; I13.2 Hypertensive heart and chronic kidney disease with heart failure and with stage 5 chronic kidney disease, or end stage renal disease; I50.9 Heart failure, unspecified; N18.6 End stage renal disease; Z99.2 Dependence on renal dialysis; Z86.73 Personal history of transient ischemic attack (TIA), and cerebral infarction without residual deficits; F41.9 Anxiety disorder, unspecified; Z87.891 Personal history of nicotine dependence
CPT/HCPCS: 36415; 74176; 80053; 83605; 85025; 93005